=== PATIENT | female | born 1950 | race Caucasian/White ===

== ENCOUNTER 2016-07-22 10:38 | Observation (INO) | payer MEDICARE, OTHER ==
--- NOTE | 2016-07-22 11:38 | RAD ---
INDICATION: Palpitations COMPARISON: August 30, 2010 TECHNIQUE: An AP portable view obtained at 1112 hours is submitted. FINDINGS: Bones/Soft Tissues: There are no acute bony findings. Cardiomediastinal: The cardiomediastinal silhouette is unchanged. There is presumed prominent right pericardial fat pad. Lungs: There are no infiltrates. Pleura: There are no pleural effusions. Other: None IMPRESSION: NO ACTIVE DISEASE OR INTERVAL CHANGE.
[2016-07-22 11:41] LABS: Hematocrit 46 % (35-47); Hemoglobin 15.3 g/dl (12.0-16.0); Mean Corpuscular HGB Conc 34 g/dl (31-36); Mean Corpuscular Hemoglobin 30 pg (27-31); Mean Corpuscular Volume 88 fL (80-97); Mean Platelet Volume 8 um3 (7.4-10.4); Red Blood Count 5.16 10^6/ul (4.0-5.4); Red Cell Distribution Width 13 % (10.5-15); White Blood Count 6.7 10^3/ul (3.5-10.8)
[2016-07-22 12:01] LABS: ALT 16 U/L (7-52); Albumin 4.4 g/dL (3.2-5.2); Alkaline Phosphatase 75 U/L (34-104); BUN/Creatinine Ratio 16.4 (8-20); Blood Urea Nitrogen 12 mg/dL (6-24); CO2 Carbon Dioxide 29 mmol/L (22-32); Calcium 9.7 mg/dL (8.6-10.3); Chloride 103 mmol/L (101-111); Creatine Kinase 97 U/L (10-223); EGFR African American 102.3 (>60); EGFR Non-African American 79.5 (>60); Glucose 107 mg/dL (70-100); Sodium 138 mmol/L (133-145); Total Protein 7.4 g/dL (6.4-8.9)
[2016-07-22 12:03] LABS: Troponin I 0.03 ng/mL (<0.04)
[2016-07-22 12:57] LABS: T4 7.29 g/dL (6.09-12.23); TSH (Thyroid Stimulating Horm) 0.57 mcIU/mL (0.34-5.60)
[2016-07-22] MEDS ORDERED: Acetaminophen TAB* 325 MG PO PRN (15:22)
[2016-07-22] MEDS ORDERED: Ondansetron INJ* 2 MG/ML VIAL IV PRN (15:22)
[2016-07-22] MEDS ORDERED: Aspirin Low Dose CHEW TAB* 81 MG PO ONE (15:28)
[2016-07-22] MEDS ORDERED: Iohexol 350* (CONTRAST) 500 ML MDV IV ONE (15:39)
[2016-07-22 15:40] LABS: Urine Bacteria Absent (Absent); Urine Bilirubin Negative (Negative); Urine Glucose Negative (Negative); Urine Nitrite Negative (Negative)
--- NOTE | 2016-07-22 16:10 | RAD ---
Indication: Palpitations. Contrast: Administered 69.8 ml of OMNIPAQUE 350 mgi/ml CTA of the chest was performed after IV contrast administration. Coronal and sagittal reconstructed images were obtained. Pulmonary arterial tree is well opacified. There are no filling defects present to suggest pulmonary embolus. There is no mediastinal or hilar adenopathy noted. The heart demonstrates no pericardial effusion. The trachea and major bronchi appear patent. Lung leach demonstrate no evidence of alveolar consolidation. IMPRESSION: No evidence of pulmonary emboli is noted. Lung leach are otherwise clear.
--- NOTE | 2016-07-22 19:17 | HP ---
HISTORY AND PHYSICAL: DATE OF ADMISSION: 07/22/16 PRIMARY CARE PROVIDER: Dr. Giordano. ATTENDING PHYSICIAN WHILE IN THE HOSPITAL: Dr. Keyonna Olivera * (report dictated by Abdi Canas NP). CHIEF COMPLAINT: 1. Palpitations. 2. Almost passed out. HISTORY OF PRESENT ILLNESS: Ms. Garcia is a 65-year-old female patient who has a history of hyperlipidemia and sarcoidosis. She comes in today stating that she had an episode actually at the [facility] while she was taking her there and she felt like she was going to faint. She actually initially when she came in to the clinic was having palpitations out in the car and driving to the clinic and then they got worse while she was sitting waiting for her . She became lightheaded, diaphoretic. She felt like she was going to faint. She told the provider there that she felt this way, they put her up on the exam table. They tried but unfortunately were unable to get an EKG. I did touch base with the provider who said that she auscultated her heart sounds and tachycardic. The patient was then directed to the ER via 911. The patient said that she has had episodes of palpitations in the past, but today was much more intense and it lasted longer than when it normally did. She states that she had no chest pressure or heaviness. She also does admit to having a recent travel. She drove up from [place] and two 12-hour drives and that was a few weeks ago. There was obvious concern on the palpitations. She came in to the ER. Repeat troponin was elevated at 0.06 and the hospitalist service was asked to evaluate for admission. PAST MEDICAL HISTORY: Significant for: 1. Hyperlipidemia. 2. Sarcoidosis. PAST SURGICAL HISTORY: She has had: 1. Breast biopsy. 2. Hysterectomy. MEDICATIONS: Home meds are denied. ALLERGIES TO MEDICATIONS: Include LEVAQUIN, MORPHINE, and OXYCODONE. FAMILY HISTORY: Mother had a history of CVA. Father had a history of heart disease. SOCIAL HISTORY: She does not smoke. She occasionally drinks alcohol. Surrogate decision maker is her . REVIEW OF SYSTEMS: There is no documented fever. She denied having any significant weight change. There was no double vision. There is no ear discharge. She denies having any rhinorrhea. No sore throat. No thyroid enlargement. She denies having any chest pain. There is no orthopnea, no nocturnal dyspnea. There is no abdominal pain. No nausea, no vomiting. No dysuria, no frequency. No seizure, no loss of consciousness. No pruritus and no skin ulcerations. Review of 14 systems completed, all others negative. PHYSICAL EXAMINATION GENERAL: At this time, Ms. Garcia is a 65-year-old female patient. She appears well-nourished, well-developed. She does not appear to be in any acute distress. VITAL SIGNS: Reveal blood pressure 156/68, pulse 62, respirations 15, O2 sat 94 %, and temperature 97.1. HEENT: Head: Atraumatic and normocephalic. Eyes: EOMs are intact. Sclerae are anicteric and not pale. Throat: Oral mucosa appears to be moist. No oropharyngeal erythema. NECK: Supple. LUNGS: Clear to auscultation. No wheezes, rales, or rhonchi. HEART: Sounds S1, S2. Regular rate and rhythm. No murmurs, rubs, or gallops. ABDOMEN: Soft, flat, and nontender. Bowel sounds present. EXTREMITIES: Pulses were 2+ throughout. She is able to move all 4 extremities with 5/5 strength. NEUROLOGIC: The patient is awake, alert, and oriented x3. No gross focal deficits. SKIN: Grossly intact. DIAGNOSTIC STUDIES/LAB DATA: Reveal WBC of 6.7, RBC of 5.16, hemoglobin 15.3, hematocrit of 46, platelet count of 267. Sodium was 138, potassium 4.1, chloride 103, bicarb 29, BUN 12, creatinine of 0.73, glucose 107, lactate 1.6, calcium 9.7, mag pending. Total bili 1.1, AST 19, ALT 16, alk phos 75. CK 97, CK-MB . Troponin 0.03, repeat 0.06. BNP of 33. Albumin of 4.4. TSH of 0.57. She had a chest x-ray which revealed no active disease. EKG shows a normal sinus rhythm with a rate of 65 with a PVC. No ST elevations or T-wave inversions. No previous for comparison. Old medical records were reviewed. ASSESSMENT AND PLAN: Ms. Garcia is a 65-year-old female patient coming in to the ER today with complaints of an episode of palpitations and normal fainting. On evaluation in the ED, repeat troponin was now 0.06. We were asked to evaluate for admission. She will be admitted under observation status for: 1. Palpitations and near syncope: At this point, the plan would be to go ahead and place her on telemetry and cycle her troponins, get an echo. I am also going to check a CTA to rule out pulmonary embolism as she did have recent travel. I question if she had supraventricular tachycardia or went into atrial fibrillation and I think the elevated troponin is probably from demand ischemia related to the tachycardia. Again, not knowing what type of tachycardia this is. She may need long-term event monitoring, but that could be set up with her primary. 2. Hyperlipidemia: Continue with current medical regimen. She is on no medications. 3. History of sarcoid: Follow with her primary. 4. DVT prophylaxis: She will be placed on heparin subcu. 5. Fluids, electrolytes, and nutrition: Heart healthy diet. 6. Code status: Full code. TIME SPENT: On the admission was 60 minutes; greater than half the time was spent [id number] with the patient obtaining my history and physical, other half the time spent going over the plan of care with the patient and implementing plan of care. I did discuss the plan of care with my attending, Dr. Olivera; she is in agreement. ABDI CANAS NP CC: Dr. Giordano* [id number]/[facility] #: [id number] MICHELLE
[2016-07-22] MEDS: Heparin VIAL(*) 5000 UNITS/ML VIAL (FIVE THOUSAND) SUBCUT SCH (21:26)
[2016-07-23] MEDS: Heparin VIAL(*) 5000 UNITS/ML VIAL (FIVE THOUSAND) SUBCUT SCH (05:04)
[2016-07-23 05:58] LABS: Hematocrit 41 % (35-47); Hemoglobin 13.8 g/dl (12.0-16.0); Mean Corpuscular HGB Conc 34 g/dl (31-36); Mean Corpuscular Hemoglobin 30 pg (27-31); Mean Corpuscular Volume 88 fL (80-97); Mean Platelet Volume 8 um3 (7.4-10.4); Red Blood Count 4.62 10^6/ul (4.0-5.4); Red Cell Distribution Width 13 % (10.5-15); White Blood Count 6.5 10^3/ul (3.5-10.8)
[2016-07-23 06:39] LABS: BUN/Creatinine Ratio 20.8 (8-20); Calcium 9.4 mg/dL (8.6-10.3); EGFR African American 103.9 (>60); EGFR Non-African American 80.8 (>60); Potassium 4.1 mmol/L (3.5-5.0)
[2016-07-23 07:38] VITALS: BP 109/69
[2016-07-23 08:56] LABS: Troponin I 0.03 ng/mL (<0.04)
[2016-07-23] MEDS ORDERED: Aspirin Low Dose CHEW TAB* 81 MG PO SCH (09:00)
--- NOTE | 2016-07-24 01:27 | DS ---
DISCHARGE SUMMARY: DATE OF ADMISSION: 07/22/16 DATE OF DISCHARGE: 07/23/16 PRIMARY CARE PROVIDER: Stuart Giordano MD DISCHARGING PROVIDER: ROMMEL Stroud SUPERVISING PHYSICIAN: Jose Elias Bertrand MD * (DICTATED BY ROMMEL STROUD) PRIMARY DISCHARGE DIAGNOSIS: Palpitations with elevated troponin. SECONDARY DISCHARGE DIAGNOSES: 1. Hyperlipidemia. 2. Sarcoidosis. DISCHARGE MEDICATION: Aspirin 81 mg p.o. daily. HOSPITAL IMAGIN. Chest x-ray shows no acute process. 2. CTA shows no PE. Lung leach are otherwise clear. 3. Telemetry monitoring overnight shows sinus rhythm, frequently bradycardic with rates in the 50s and occasional PVCs. 4. EKG shows sinus arrhythmia with PVC. Repeat EKG shows sinus bradycardia without ischemic changes. HOSPITAL COURSE: This is a 65-year-old female with history of hyperlipidemia and sarcoidosis, who presented to the emergency department after an episode of palpitations that actually occurred while visiting her 's medical provider. The patient felt very lightheaded and diaphoretic and was subsequently referred to the emergency department. No EKG was performed. The patient was asymptomatic when she reached the emergency department. EKG showed sinus arrhythmia with the rates near 60 and no other acute pathology was recognized. The patient had recently driven back from [place]. There is concern as to whether her symptoms may represent PE. A CTA was performed, which was negative for PE and her lung leach were otherwise clear. Initial labs were unremarkable including a normal CBC and comprehensive metabolic panel. Initial troponin was negative at 0.03, but repeat was slightly elevated at 0.06. Serial monitoring overnight revealed stability in her troponin of 0.06 and the patient had no further symptoms of palpitations. The patient was maintained on continuous telemetry monitoring overnight, which revealed sinus bradycardia with occasional PVCs. No other dysrhythmia is appreciated. The patient was otherwise asymptomatic. The patient has no personal history of cardiovascular disease, but does have a strong family history including her siblings with prior MIs and requiring pacemakers. The patient does require further workup for these symptoms, but unfortunately these services are not available in the hospital over the weekend and the patient is otherwise stable for discharge. The patient reports that she has been under significant amount of stress and has been traveling recently. She believes that this maybe contributing to her symptoms, which I explained to her is certainly possible, but further workup is absolutely necessary, which she agrees with. DISPOSITION: The patient is being discharged to home with instructions to follow up with her primary care provider next week. She started on a daily aspirin. She requires an echocardiogram, stress test, and Holter monitor. The patient is advised to limit caffeine intake and maintain appropriate hydration status. ROMMEL STROUD CC: Dr. Giordano* [id number]/[facility] #: [id number] MTDBaltazar
== END 2016-07-23 09:30 | disposition home or self-care (01) ==
LOC: ED 10:38 → MEDTELE 15:51
PROVIDERS: ADMIT Internal Medicine; ATTEND Hospitalist
DX: R00.2 Palpitations (principal); R74.8 Abnormal levels of other serum enzymes; R55 Syncope and collapse; E78.5 Hyperlipidemia, unspecified; D86.9 Sarcoidosis, unspecified; I49.3 Ventricular premature depolarization; Z88.1 Allergy status to other antibiotic agents; Z88.5 Allergy status to narcotic agent; Z79.82 Long term (current) use of aspirin; Z82.49 Family history of ischemic heart disease and other diseases of the circulatory system
CPT/HCPCS: 36415; 71010; 71275; 80048; 80053; 80061; 81003; 81015; 82550; 82553; 83036; 83605; 83880; 84436; 84443; 84484; 85025; 85610; 87086; 93005; 96372; 99283; A9270-GY; G0378; J1644; Q9967

== ENCOUNTER 2018-09-08 14:10 | Emergency (ER) | payer MEDICARE, OTHER ==
[2018-09-08 17:49] LABS: ABS Eosinophils 0.1 10^3/ul (0-0.6); ABS Monocytes 0.6 10^3/ul (0-0.8); ABS Neutrophils 5.9 10^3/ul (1.5-7.7); Eosinophil % 1.1 %; Hematocrit 39 % (35-47); Hemoglobin 13.4 g/dL (12.0-16.0); Lymphocyte % 23.3 %; Mean Corpuscular HGB Conc 34 g/dL (31-36); Mean Corpuscular Hemoglobin 31 pg (27-31); Mean Corpuscular Volume 91 fL (80-97); Mean Platelet Volume 7.8 fL (7.4-10.4); Platelet Count 254 10^3/uL (150-450); Red Blood Count 4.33 10^6 /uL (3.70-4.87); Red Cell Distribution Width 13 % (10.5-15); White Blood Count 8.7 10^3/uL (3.5-10.8)
--- NOTE | 2018-09-08 17:50 | ED ---
HPI Cardiac - HPI Summary HPI Summary: This patient is a 67 year old F presenting to ED with a chief complaint of heart palpitations since 1100 this morning. She had similar heart issues a couple years ago due to stress. They ruled out [facility] then. She denies feeling stressed today. She used essential oils earlier today to lower her blood pressure but denies taking deep breaths. The patient rates the pain 3/10 in severity. Symptoms aggravated by nothing. Symptoms alleviated by nothing. Patient reports slight [place], lightheadedness, and disturbed sleep. Patient denies CP, SOB, numbness, tingling, nausea, vomiting, LOC. She has previously had mild arm and shoulder pain but no pain today. PMHx of HLD and sarcoidosis but not of DM, DVT, PE, thyroid, urinary issues. FHx of cardiac disease, stroke, aneurysm, and cancer. Patient occasionally drinks alcohol, does not use substances, and is a former smoker. - History of Current Complaint Chief Complaint: EDDysrhythmPalp Stated Complaint: HIGH HEART RATE FOR ABOUT 3 HOURS PER PT Time Seen by Provider: 09/08/18 17:07 Hx Obtained From: Patient Onset/Duration: Started Hours Ago - 1100 this morning, Still Present Timing: Constant Initial Severity: Mild Current Severity: Mild Pain Intensity: 3 Pain Scale Used: 0-10 Numeric Chest Pain Radiates: No Aggravating Factor(s): Nothing Alleviating Factor(s): Nothing Associated Signs and Symptoms: Positive: Headaches, Lightheadedness, Other: - Disturbed sleep. Negative: Chest Pain, Numbness, Tingling, Shortness of Breath , Syncope, Nausea, Vomiting Related History: Similar Episode/Dx as: - Years ago due to stress - Additional Pertinent History Primary Care Physician: [id number] - Allergy/Home Medications Allergies/Adverse Reactions: Allergies Allergy/AdvReac Type Severity Reaction Status Date / Time levofloxacin Allergy Unknown Verified 09/08/18 14:21 Reaction Details morphine Allergy Unknown Verified 09/08/18 14:21 Reaction Details oxycodone Allergy Dizziness Verified 09/08/18 14:21 Home Medications: Home Medications Mirtazapine TAB* [Remeron TAB*] 15 mg PO BEDTIME 09/08/18 [History Confirmed ] PMH/Surg Hx/FS Hx/Imm Hx Endocrine/Hematology History: Denies: Hx Diabetes, Hx Thyroid Disease Cardiovascular History: Reports: Hx Hypercholesterolemia Denies: Hx Deep Vein Thrombosis, Hx Embolism History: Reports: Other Problems/Disorders - Denies urinary issues Sensory History: Reports: Hx Contacts or Glasses Denies: Hx Hearing Aid Opthamlomology History: Reports: Hx Contacts or Glasses Infectious Disease History: No Infectious Disease History: Reports: Hx Shingles - apr 2016 Denies: Traveled Outside the [place] in Last 30 Days - Family History Known Family History: Positive: Cardiac Disease, Other - Yes - Stroke, aneurysm , [place] - Social History Alcohol Use: Occasionally Hx Substance Use: No Substance Use Type: Reports: None Hx Tobacco Use: Yes Smoking Status (MU): Former Smoker Have You Smoked in the Last Year: No - "only when I drank" Review of Systems Positive: Palpitations. Negative: Chest Pain Negative: Shortness Of Breath Negative: Vomiting, Nausea Neurological: Negative - Tingling, Other - Lightheadedness, disturbed sleep Positive: Headache. Negative: Numbness, Syncope All Other Systems Reviewed And Are Negative: Yes Physical Exam - Summary Physical Exam Summary: GENERAL: Patient is a well-developed and nourished F who is lying comfortable in the stretcher. Patient is not in any acute respiratory distress. HEAD AND FACE: Normocephalic EYES: PERRLA, EOMI x 2. EARS: Hearing grossly intact. MOUTH: Oropharynx within normal limits. NECK: Supple, trachea is midline, no adenopathy, no JVD, no carotid bruit. CHEST: Symmetric, no tenderness at palpation LUNGS: Clear to auscultation bilaterally. No wheezing or crackles. CVS: Regular rate and rhythm, S1 and S2 present, no murmurs or gallops appreciated. ABDOMEN: Soft, non-tender. Bowel sounds are normal. No abnormal abdominal pulsations. EXTREMITIES: Full ROM in all major joints, no edema, no cyanosis or clubbing. NEURO: Alert and oriented x 3. No acute neurological deficits. Speech is normal and follows commands. SKIN: Dry and warm Triage Information Reviewed: Yes Vital Signs On Initial Exam: Initial Vitals Temp Pulse Resp BP Pulse Ox 97.6 F 160 16 151/107 96 09/08/18 14:15 09/08/18 14:15 09/08/18 14:15 09/08/18 14:15 09/08/18 14:15 Vital Signs Reviewed: Yes Diagnostics - Vital Signs Vital Signs Temp Pulse Resp BP Pulse Ox 09/08/18 17:00 59 18 95 09/08/18 16:29 60 96 09/08/18 16:10 98 F 63 16 132/68 98 09/08/18 14:15 97.6 F 160 16 151/107 96 - Laboratory Result Diagrams: 09/08/18 17:39 09/08/18 17:39 Lab Statement: Any lab studies that have been ordered have been reviewed, and results considered in the medical decision making process. - Radiology CXR Radiology Interpretation Completed By: Radiologist Summary of Radiographic Findings: No evidence for acute intrathoracic disease. Dr. Avelar has reviewed this radiology report. - EKG 1421 Cardiac Rate: NL - 74 BPM Summary of EKG Findings: Sinus arrhythmia at 74 BPM, normal axis. 2114 Cardiac Rate: Bradycardia - 58 BPM EKG Rhythm: Sinus Bradycardia Summary of EKG Findings: Sinus bradycardia at 58 BPM, normal axis, no ischemic changes. Re-Evaluation - Re-Evaluation First Eval Re-Evaluation Time: 19:05 Comment: Upon review of patient history, I noticed she did not have cardiology workup done here. Therefore, I followed-up with her and she stated she got cardiology workup done at [facility] where the stress tests and echo were all normal. Second Eval Re-Evaluation Time: 21:41 Comment: Following second troponin, discussed results with patient. Third Eval Re-Evaluation Time: 20:27 Comment: Discussed results with patient. Patient will be discharged home with diagnosis of heart palpitations and instructions to follow-up with a door installer. Disposition - Course Course Of Treatment: This patient is a 67 year old F presenting to ED with a chief complaint of heart palpitations since 1100 this morning. In the ER, bloodwork and UA were obtained. CXR revealed no evidence for acute intrathoracic disease. EKG revealed sinus arrhythmia at 74 BPM, normal axis. Case discussed with hospitalist who recommended the patient be discharged home with follow-up with door installer for loop recorder. Her troponin is mostly from demand ischemia, so I feel comfortable discharging her home with follow-up to cardiology. I discussed results with patient, and she reports feeling better. She is hemodynamically stable and safe for discharge. Strict return precautions given and she will otherwise follow up with her cardiology. - Diagnoses Provider Diagnoses: Palpitations - Physician Notifications Discussed Care Of Patient With: Leah Daugherty Time Discussed With Above Provider: 22:00 Instructed by Provider To: Other - Discussed patient case with Dr. Daugherty, hospitalist, who recommends the patient see cardiology. Discharge - Sign-Out/Discharge Documenting (check all that apply): Patient Departure - Discharge Patient Received Moderate/Deep Sedation with Procedure: No - Discharge Plan Condition: Good Disposition: HOME Patient Education Materials: Heart Palpitations (ED) Referrals: Jenna Ward MD [Medical Doctor] - 3 Days Additional Instructions: Follow up with Dr. Ward, door installer, in 1-3 days. RETURN TO THE EMERGENCY DEPARTMENT FOR CHANGING OR WORSENING SYMPTOMS. - Billing Disposition and Condition Condition: GOOD Disposition: Home - Attestation Statements Document Initiated by Barbaraibe: Yes Documenting Scribe: Winston Anna Provider For Whom Lise is Documenting (Include Credential): Demetria Avelar MD Scribe Attestation: IWinston, scribed for Demetria Avelar MD on 09/08/18 at 2230. Scribe Documentation Reviewed: Yes Provider Attestation: The documentation as recorded by the scribeWinston accurately reflects the service I personally performed and the decisions made by me, Demetria Avelar MD Status of Scribe Document: Viewed
[2018-09-08 17:58] LABS: Activated Partial Thrombo Time 27.9 seconds (26.0-36.3); INR 0.93 (0.82-1.09)
[2018-09-08 18:07] LABS: ALT 12 U/L (7-52); AST 18 U/L (13-39); Albumin 4.2 g/dL (3.2-5.2); Albumin/Globulin Ratio 1.6 (1-3); Alkaline Phosphatase 71 U/L (34-104); Anion Gap 6 mmol/L (2-11); BUN/Creatinine Ratio 21.4 (8-20); Blood Urea Nitrogen 15 mg/dL (6-24); CO2 Carbon Dioxide 28 mmol/L (22-32); Calcium 9.2 mg/dL (8.6-10.3); Chloride 106 mmol/L (101-111); EGFR African American 100.4 (>60); Globulin 2.6 g/dL (2-4); Glucose 99 mg/dL (70-100); Magnesium 2.1 mg/dL (1.9-2.7); Potassium 4.2 mmol/L (3.5-5.0); Sodium 140 mmol/L (135-145); Total Protein 6.8 g/dL (6.4-8.9)
[2018-09-08 18:14] LABS: Troponin I 0.05 ng/mL (<0.04)
[2018-09-08 18:36] LABS: TSH (Thyroid Stimulating Horm) 1.23 mcIU/mL (0.34-5.60)
[2018-09-08 21:17] LABS: Urine Appearance Cloudy; Urine Bacteria Absent (Absent); Urine Bilirubin Negative (Negative); Urine Blood Negative (Negative); Urine Color Yellow; Urine Glucose Negative (Negative); Urine Ketones Negative (Negative); Urine Nitrite Negative (Negative); Urine Protein Negative (Negative); Urine Red Blood Cell Trace(0-2/hpf) (Absent); Urine Specific Gravity 1.015 (1.010-1.030); Urine Squamous Epithelial Cell Present (Absent); Urine Urobilinogen Negative (Negative); Urine White Blood Cell 1+(6-10/hpf) (Absent)
[2018-09-08 21:38] LABS: Troponin I 0.06 ng/mL (<0.04)
[2018-09-08 22:44] VITALS: BP 120/79
== END 2018-09-08 22:35 | disposition home or self-care (01) ==
LOC: ED 14:10
DX: R00.2 Palpitations (principal); E78.00 Pure hypercholesterolemia, unspecified; Z88.5 Allergy status to narcotic agent; Z88.3 Allergy status to other anti-infective agents; Z87.891 Personal history of nicotine dependence
CPT/HCPCS: 36415; 71045; 80053; 81003; 81015; 83605; 83735; 83880; 84443; 84484; 85025; 85379; 85610; 85730; 87040; 87086; 93005; 99283

== ENCOUNTER 2019-05-17 19:05 | Inpatient (IN) | payer MEDICARE, OTHER ==
--- OUTSIDE RECORDS SUMMARY | 2019-05-17 19:13 | XMS REPORT | Continuity of Care Document ---
:1950 External Reference #:[id number] Author Name Elisa Luna MD (transmitted by agent of provider Jocelyn Arias) Address [address], [address] [place] [id number] Care Team Providers Name Role Phone Stuart Giordano MD - Family Care Team Information Bead Wrapper [phone] Medicine Problems Active Problems Provider Date Palpitations [facility] [place] Onset: 07/29/2016 Dyspnea Rik Kellogg M.D., [facility] Onset: 07/29/2016 Hyperlipidemia Rik Kellogg M.D., [facility], [place] Onset: 10/09/2018 Paroxysmal atrial fibrillation Rik Kellogg M.D., [facility], [facility] Onset: Social History Type Date Description Comments Sex Unknown ETOH Use Occasionally consumes alcohol Tobacco Use Start: Unknown End: Patient is a former socially and Unknown smoker exposed to second hand smoke Recreational Drug Use Denies Drug Use Smoking Status Reviewed: 03/29/19 Patient is a former socially and smoker exposed to second hand smoke Exercise Type/Frequency Does not exercise Allergies, Adverse Reactions, Alerts Active Allergies Reaction Severity Comments Date Morphine itchey 07/29/2016 Levaquin 07/29/2016 Oxycodone 07/29/2016 Medications Active Medications SIG Qnty Indications Ordering Date Provider Toprol XL 1 by mouth every 90tabs Rik Smith 11/14/2018 25mg Tablets day Toñito Kellogg, ER 24HR GINO, ELODIA Xarelto 1 by mouth every 90tabs Rik Smith 11/14/2018 20mg Tablets day Toñito Kellogg, [facility], [place] Vitamin C 1 by mouth every Unknown 1000mg day prn Capsules D3 1 po daily Unknown Capsules Calcium Plus 1 po daily Unknown Magnesium Calcium occasional Unknown Digize Oil 1 -2 gtts prn for Unknown indigestion Deep Relief prn pain Unknown Roll-On Essentialzyme 2 po daily Unknown Tablet Ninja Red 2 ounces daily if Unknown Liquid remembers. CBD Oil 1000 MG 1/4 dropper Unknown ( started 11/03/18) Super B-Complex 1 tablet po daily Unknown Tablets Multiple Vitamins Master formula 1 Unknown packet daily prn Red Yeast Rice 1200 mg 1 cap po Unknown daily PD 1 po daily for Unknown endocrine system Medications Administered in Office Medication SIG Qnty Indications Ordering Provider Date Inj, Regadenoson, 0.1 MG Rik Kellogg M.D., 11/19/2018 Injection FACC, FASNC Technetium TC 99M Rik Kellogg M.D., 11/19/2018 Tetrofosmin, Per Unit Dose FACC, FASNC Up To 40 Millicuries Injection Technetium TC 99M Rik Kellogg M.D., 11/19/2018 Tetrofosmin, Per Unit Dose FACC, FASNC Up To 40 Millicuries Injection Technetium TC 99M Rik Kellogg M.D., 08/29/2016 Tetrofosmin, Per Unit Dose FACC, FASNC Up To 40 Millicuries Injection Immunizations Description No Information Available Vital Signs Date Vital Result Comment 03/29/2019 10:25am Height 64.25 inches 5'4.25" Weight 178.00 lb Heart Rate 57 /min BP Systolic Sitting 160 mmHg BP Diastolic Sitting 80 mmHg O2 % BldC Oximetry 93 % BMI (Body Mass Index) 30.3 kg/m2 12/31/2018 9:31am Height 64.25 inches 5'4.25" Weight 181.00 lb Heart Rate 55 /min BP Systolic Sitting 142 mmHg BP Diastolic Sitting 80 mmHg O2 % BldC Oximetry 96 % BMI (Body Mass Index) 30.8 kg/m2 Results Test Acquired Date Facility Test Result H/L Range Note Laboratory test 11/19/2018 [facility] TSH 1.18 Normal 0.34- 5.[address] (Thyroid mcIU/[place] [address] Stim [phone] Horm) Procedures Date Code Description Status 01/24/2019 83109 Diffusing Capacity Completed 01/24/2019 72562 Plethysmography Determination Lung Volumes & Per Airway Completed Resist 01/24/2019 50490 Pulmonary Function><Bronchodil Completed 01/05/2019 99024 Sleep Study Unattended,HRT Rate,Oxygen Sat,Resp Completed Effort/Airflow 12/11/2018 48586 EKG Tracing & Interpretation Completed 11/19/2018 87339 Stress Test Completed 11/19/2018 74909 Myocardial Perfusion Imaging Tomographic (Spect) Multiple Completed Studies 10/23/2018 27088 ECHO Transthoracic, Real-Time 2D With Doppler And Color Completed Flow 10/23/2018 37575 ECHO Transthoracic, Real-Time 2D With Doppler And Color Completed Flow 10/09/2018 25557 EKG Tracing & Interpretation Completed Medical Devices Description No Information Available Encounters Type Date Location Provider Dx Diagnosis Office Visit 12/31/2018 Pulmonology And Elisa Luna, D86.9 Sarcoidosis, 10:00a [facility] unspecified Melony R06.83 Snoring Office Visit 12/11/2018 1:00p [facility] Riklandry Smith I48.0 Paroxysmal atrial Of Melony Kellogg M.D., fibrillation [facility] Office Visit 10/09/2018 1:00p [facility] Rik Smith R00.2 Palpitations Of Melony Kellogg M.D., [facility] R06.02 Shortness of breath Assessments Date Code Description Provider 03/29/2019 D86.9 Sarcoidosis, unspecified Elisa Luna MD 03/29/2019 G47.33 Obstructive sleep apnea (adult) Elisa Luna MD (pediatric) 01/24/2019 D86.9 Sarcoidosis, unspecified Elisa Luna MD 01/05/2019 G47.33 Obstructive sleep apnea (adult) Elisa Luna MD (pediatric) 12/31/2018 D86.9 Sarcoidosis, unspecified Elisa Luna MD 12/31/2018 R06.83 Snoring Elisa Luna MD 12/11/2018 I48.0 Paroxysmal atrial fibrillation Rik Kellogg M.D., [facility] , [facility] 11/19/2018 R06.00 Dyspnea, unspecified Rik Kellogg M.D., [facility], [facility] 10/23/2018 R06.02 Shortness of breath Rik Kellogg M.D., [facility], [facility] 10/23/2018 R06.02 Shortness of breath Traveling ECHO 1 10/09/2018 R00.2 Palpitations Rik Kellogg M.D., [facility], [facility] 10/09/2018 R06.02 Shortness of breath Rik Kellogg M.D., [facility], [facility] Plan of Treatment Future Appointment(s):03/30/2020 10:30 am - Kenia Goss NP at [facility]03/29/2019 - Elisa Luna, MDD86.9 Sarcoidosis, unspecifiedFollow up:1 yearG47.33 Obstructive sleep apnea (adult) ( pediatric) Functional Status Description No Information Available Mental Status Description No Information Available Referrals Description No Information Available
[2019-05-17 19:43] LABS: ABS Eosinophils 0.1 10^3/ul (0-0.6); ABS Lymphocytes 1.6 10^3/ul (1.0-4.8); ABS Monocytes 0.6 10^3/ul (0-0.8); ABS Neutrophils 5.7 10^3/ul (1.5-7.7); Eosinophil % 0.6 %; Hematocrit 42 % (35-47); Hemoglobin 14.5 g/dL (12.0-16.0); Lymphocyte % 19.8 %; Mean Corpuscular HGB Conc 34 g/dL (31-36); Mean Corpuscular Hemoglobin 31 pg (27-31); Mean Corpuscular Volume 91 fL (80-97); Mean Platelet Volume 7.2 fL (7.4-10.4); Platelet Count 247 10^3/uL (150-450); Red Blood Count 4.65 10^6 /uL (3.70-4.87); Red Cell Distribution Width 13 % (10-15)
[2019-05-17 19:50] LABS: INR 1.76 (0.82-1.09)
--- NOTE | 2019-05-17 19:50 | ED ---
HPI Cardiac - HPI Summary HPI Summary: The pt is a 68 yr old [facility]o rapid heart rate beginning 2 hours [facility]. She notes that her heart suddenly began racing but she notes she was doing nothing when the symptom began. She has experienced this once before in 08/2018. She rates her current pain severity a 0/10. No aggravating or alleviating factors noted. She also denies any cp, cough, fever, nausea, or SOB. - History of Current Complaint Chief Complaint: EDDysrhythmPalp Stated Complaint: RAPID HEART RATE PER EMS Time Seen by Provider: 05/17/19 19:30 Hx Obtained From: Patient Onset/Duration: Started Hours Ago, Still Present Timing: Constant, Lasting Hours Initial Severity: Mild Current Severity: None Pain Intensity: 0 Pain Scale Used: 0-10 Numeric Aggravating Factor(s): Nothing Alleviating Factor(s): Nothing Associated Signs and Symptoms: Negative: Chest Pain, Shortness of Breath, Fever , Nausea, Cough - Additional Pertinent History Primary Care Physician: BERTIN - Allergy/Home Medications Allergies/Adverse Reactions: Allergies Allergy/AdvReac Type Severity Reaction Status Date / Time levofloxacin Allergy Unknown Verified 05/17/19 19:24 Reaction Details morphine Allergy Unknown Verified 05/17/19 19:24 Reaction Details oxycodone Allergy Dizziness Verified 05/17/19 19:24 Home Medications: Home Medications Metoprolol Succinate XL TAB* [Toprol XL TAB*] 25 mg PO DAILY 05/17/19 [History Confirmed 05/17/19] Rivaroxaban TAB(*) [Xarelto 20 mg] 20 mg PO DAILY 05/17/19 [History Confirmed ] PMH/Surg Hx/FS Hx/Imm Hx Endocrine/Hematology History: Denies: Hx Diabetes, Hx Thyroid Disease Cardiovascular History: Reports: Hx Hypercholesterolemia Denies: Hx Deep Vein Thrombosis, Hx Embolism History: Reports: Other Problems/Disorders - Denies urinary issues Sensory History: Reports: Hx Contacts or Glasses Denies: Hx Hearing Aid Opthamlomology History: Reports: Hx Contacts or Glasses - Surgical History Surgical History: Yes Surgery Procedure, Year, and Place: hysterectomy Infectious Disease History: No Infectious Disease History: Reports: Hx Shingles - apr 2016 Denies: Traveled Outside the [place] in Last 30 Days - Family History Known Family History: Positive: Cardiac Disease, Other - Yes - Stroke, aneurysm , [place] - Social History Alcohol Use: Rare Hx Substance Use: No Substance Use Type: Reports: None Hx Tobacco Use: Yes Smoking Status (MU): Former Smoker Have You Smoked in the Last Year: No - "only when I drank" Review of Systems Negative: Fever Negative: Chest Pain Negative: Shortness Of Breath, Cough Negative: Nausea All Other Systems Reviewed And Are Negative: Yes Physical Exam - Summary Physical Exam Summary: General: Well-developed, Well-nourished female. No acute distress. HEENT: Normocephalic, Atraumatic. Eyes: Conjuctiva normal, PERRL. Oropharynx: Clear, mucous membranes moist, (-) exudates. Neck: Soft, FROM, (-) lymphadenopathy, (-) thyromegaly, (-) JVD. Cardiovascular: NSR, (-) murmur. Lungs: Clear to auscultation bilaterally (-) wheezes, (-) rales, (-) rhonchi. Abdomen: Soft, non-tender, non-distended, (-) organomegaly, normal bowel sounds. Back: (-) CVA tenderness Extremities: No edema. Skin: Warm, dry, (-) rash. Neuro: Alert and oriented x3, moves all extremities equally. No ataxia. No gait disturbance. No sensory deficit. No amnesia. Psychiatric: Mood normal, affect normal. Triage Information Reviewed: Yes Vital Signs On Initial Exam: Initial Vitals Temp Pulse Resp BP Pulse Ox 97.3 F 142 16 120/84 95 05/17/19 19:10 05/17/19 19:10 05/17/19 19:10 05/17/19 19:10 05/17/19 19:10 Vital Signs Reviewed: Yes Procedures - Sedation Patient Received Moderate/Deep Sedation with Procedure: No Diagnostics - Vital Signs Vital Signs Temp Pulse Resp BP Pulse Ox 05/17/19 19:22 133 16 117/95 95 05/17/19 19:10 97.3 F 142 16 120/84 95 - Laboratory Lab Results: Lab Results 05/17/19 Range/Units 19:37 WBC 8.0 (3.5-10.8) 10^3/uL RBC 4.65 (3.70-4.87) 10^6 /uL Hgb 14.5 (12.0-16.0) g/dL Hct 42 (35-47) % MCV 91 (80-97) fL MCH 31 (27-31) pg MCHC 34 (31-36) g/dL RDW 13 (10-15) % Plt Count 247 (150-450) 10^3/uL MPV 7.2 L (7.4-10.4) fL Neut % (Auto) 71.8 % Lymph % (Auto) 19.8 % [place] % (Auto) 7.3 % Eos % (Auto) 0.6 % Baso % (Auto) 0.5 % Absolute Neuts (auto) 5.7 (1.5-7.7) 10^3/ul Absolute Lymphs (auto) 1.6 (1.0-4.8) 10^3/ul Absolute Monos (auto) 0.6 (0-0.8) 10^3/ul Absolute Eos (auto) 0.1 (0-0.6) 10^3/ul Absolute Basos (auto) 0.0 (0-0.2) 10^3/ul Absolute Nucleated RBC 0.0 10^3/ul Nucleated RBC % 0.0 Result Diagrams: 05/18/19 05:32 05/18/19 05:32 Lab Statement: Any lab studies that have been ordered have been reviewed, and results considered in the medical decision making process. - Radiology CXR Radiology Interpretation Completed By: ED Physician Summary of Radiographic Findings: No obvious infiltrate or effusion pending official report. - EKG 1914 Cardiac Rate: Tachycardia - 142 BPM EKG Rhythm: Sinus Tachycardia Summary of EKG Findings: EKG done at 1914 reveals junctional tachycardia @ 142 bpm. No STEMI. 2012 Cardiac Rate: NL - 70 bpm EKG Rhythm: Sinus Rhythm Summary of EKG Findings: EKG @ 2012 reveals NST @ 70 bpm. No STEMI. 2302 Cardiac Rate: Other Rate - Afib @ 140 bpm EKG Rhythm: Atrial Fibrillation Summary of EKG Findings: EKG @ 2302 reveals Afib @ 140 bpm. No STEMI. Re-Evaluation - Re-Evaluation First Eval Re-Evaluation Time: 21:49 Comment: 2nd Troponin is negative. Disposition - Course Course Of Treatment: 68-year-old female presents with sensation of rapid heartbeat. She states she's had this before. Has a history of atrial fibrillation. this happened in August. Patient states lasted over 2 hours at this time. She denies any pain. No significant shortness of breath just feeling like her heart is racing. She was tachycardic in the 140s upon arrival. 2 different times while in the emergency room her heart rate dropped into the 60s and 70s. Then went back up into the 130s 140s. The second time she was definitely in A. fib. Her 3 hour troponin was elevated at 0.03. Patient referred to hospitalist for admission. - Diagnoses Provider Diagnoses: Paroxysmal A-fib, Elevated troponin - Physician Notifications Discussed Care Of Patient With: Marcia Holloway - Dr. Holloway will admit the pt to [facility]. Discharge ED - Sign-Out/Discharge Documenting (check all that apply): Patient Departure - admit - Discharge Plan Condition: Improved Disposition: ADMITTED TO [facility] - Billing Disposition and Condition Condition: IMPROVED Disposition: Admitted to [facility] - Attestation Statements Document Initiated by Claire: Yes Documenting Scribe: Ashwin Garcia Provider For Whom Claire is Documenting (Include Credential): Trudy Crews MD Scribe Attestation: I, Ashwin Garcia, scribed for Trudy Crews MD on 05/19/19 at 0401. Scribe Documentation Reviewed: Yes Provider Attestation: The documentation as recorded by the Ashwin lopez accurately reflects the service I personally performed and the decisions made by me, Trudy Crews MD Status of Scribe Document: Viewed
[2019-05-17] MEDS ORDERED: Labetalol IV* 5 MG/ML 20 ML VIAL IV PUSH ONE (19:55)
[2019-05-17 20:00] LABS: Albumin/Globulin Ratio 1.6 (1-3); BUN/Creatinine Ratio 14.9 (8-20); Calcium 8.8 mg/dL (8.6-10.3); EGFR African American 105.3 (>60); Globulin 2.5 g/dL (2-4); Potassium 3.6 mmol/L (3.5-5.0); Total Bilirubin 0.8 mg/dL (0.2-1.0); Total Protein 6.5 g/dL (6.4-8.9)
[2019-05-17 20:01] LABS: Troponin I 0.02 ng/mL (<0.03)
[2019-05-17 20:42] LABS: TSH (Thyroid Stimulating Horm) 0.92 mcIU/mL (0.34-5.60)
[2019-05-17 23:21] LABS: Troponin I 0.11 ng/mL (<0.03)
[2019-05-18 05:50] LABS: ABS Eosinophils 0.1 10^3/ul (0-0.6); ABS Monocytes 0.7 10^3/ul (0-0.8); ABS Neutrophils 4.2 10^3/ul (1.5-7.7); Eosinophil % 1.2 %; Hematocrit 40 % (35-47); Hemoglobin 13.8 g/dL (12.0-16.0); Mean Corpuscular HGB Conc 35 g/dL (31-36); Mean Corpuscular Hemoglobin 32 pg (27-31); Mean Corpuscular Volume 91 fL (80-97); Mean Platelet Volume 7.5 fL (7.4-10.4); Nucleated Red Blood Cells % 0.3; Platelet Count 251 10^3/uL (150-450); Red Blood Count 4.39 10^6 /uL (3.70-4.87); Red Cell Distribution Width 13 % (10-15)
[2019-05-18 06:03] LABS: BUN/Creatinine Ratio 16.4 (8-20); Calcium 8.8 mg/dL (8.6-10.3); EGFR African American 95.4 (>60); EGFR Non-African American 78.8 (>60); Potassium 3.9 mmol/L (3.5-5.0)
[2019-05-18 06:12] LABS: Troponin I 0.17 ng/mL (<0.03)
--- NOTE | 2019-05-18 06:17 | ADMNOTE ---
Subjective Interval History: 68 yo female with hx of paroxysmal Afib on xarelto presenting with complaints of palpitations. She has labile mood this morning. On the tele, her HR has gone up to as high as 140s but not sustained long enough to be administered medications. troponins are elevated at 0.11. TSH is normal. Family History: Unchanged from Admission Social History: Unchanged from Admission Past Medical History: Unchanged from Admission Review of Systems - Measurements Intake and Output: Intake and Output Last 24 Hours 05/15/19 05/16/19 05/17/19 05/18/19 06:59 06:59 06:59 06:59 Intake Total 0 Output Total 0 Balance 0 Weight 164 lb 6.4 oz Intake: Oral 0 Output: Urine 0 - Review of Systems Constitutional Symptoms: Negative: Weight Gain, Weight Loss, Weakness, Fatigue, Fever, Night Sweats, Unexplained Falls, Other Dermatology: Negative: Normal, Rash, Skin Lesions, Cancer, Skin Lumps, Other HEENT: Negative: Normal, Change in Hearing, Vertigo, Dental Problems, Tinnitus, Sinus Problem, Other Eyes: Negative: Normal, Change in Vision, Double Vision, Eye Pain, Glaucoma, Cataract, Contacts or Glasses, Other Thyroid: Negative: Normal, Goiter, Thyroid Nodule, Cold Intolerance, Heat Intolerance , Sweatiness, Tremor, Frequent Defecation, Constipation, Palpitations, Primary Hypothyroidism, Primary Hyperthyroidism, Weight Loss, Weight Gain, Change in Skin/Hair, Change in Menstruation, Radiation Exposure, Other Pulmonary: Negative: Normal, Cough, Sputum, Hemoptysis, Wheezing, Respiratory Distress, Shortness of Breath, COPD, Asthma, Exercise Intolerance, Home Oxygen, Other Cardiology: Positive: Palpitations Negative: Normal, Chest Pain, Shortness of Breath, Swelling of Ankles, Peripheral Vascular Dis, Edema, Faintness, Syncope, Claudication, Proximal NocturnalDyspnea, Orthopnoea, Other Gastroenterology: Negative: Normal, Abdominal Pain, Nausea, Vomiting, Anorexia, Indigestion, Difficulty Swallowing, Heartburn, Constipation, Diarrhea, Blood in Stools, Change in Bowel Habits, Haematemesis, Melena, Other Genital - Urinary: Negative: Normal, Dysuria, Hematuria, Polyuria, Nocturia, Other Musculoskeletal: Negative: Joint Pain, Joint Stiffness, Arthritis, Osteoporosis, Low Back Pain , Sciatica, Joint Deformities, Kyphoscoliosis, Other Endocrinology: Negative: Normal, Thyroid Problems, Adrenal Problems, Gonadal Problems, Family Hx Endocrine Disorders, Obesity, Diabetes Mellitus, Hyperglycemia, Hx Hypoglycemia, Diabetic Foot Ulcers, Calluses, Hirsutism, Menstrual Abnormalities , Polydipsia, Polyuria, Gonadal Problems, Gynecomastia, Pituitary disease, Other Hematologic/Lymphatic: Negative: Anemia, Easy Bruising, Hx Leukemia, Hx Lymphoma, Use of Anticoagulant, Use of Antiplatelet Drugs, Other Neurology: Negative: Normal, Headache, Migraines, Change in Vision, Diplopia, Dizziness , Change in Balancing, Change in Coordination, Change in Memory, Change in Speech, Change in Sphincter Function, Change in Walking, Numbness\Paresthesiae, Unexplained Weakness, Hx of Stroke\TIA, Hx of Seizures, Other Objective Active Medications: Metoprolol Succinate (Toprol Xl Tab*) 25 mg PO DAILY [facility] Rivaroxaban (Xarelto(*)) 20 mg PO QPM [facility] Vital Signs - 8 hr 05/17/19 05/17/19 05/17/19 22:22 22:52 23:00 Temperature Pulse Rate 63 58 139 Respiratory 23 18 22 Rate Blood Pressure 113/64 122/70 (mmHg) O2 Sat by Pulse 94 96 97 Oximetry 05/17/19 05/17/19 05/17/19 23:01 23:22 23:52 Temperature Pulse Rate 139 65 62 Respiratory 13 19 20 Rate Blood Pressure 122/70 115/63 125/79 (mmHg) O2 Sat by Pulse 96 94 93 Oximetry 05/18/19 05/18/19 05/18/19 00:00 00:18 00:20 Temperature 97.5 F Pulse Rate 58 64 64 Respiratory 19 20 19 Rate Blood Pressure 114/57 114/57 (mmHg) O2 Sat by Pulse 92 94 94 Oximetry 05/18/19 05/18/19 05/18/19 00:22 00:45 00:51 Temperature 97.5 F 98 F Pulse Rate 62 68 61 Respiratory 17 16 16 Rate Blood Pressure 117/75 114/57 131/69 (mmHg) O2 Sat by Pulse 94 95 97 Oximetry 05/18/19 03:30 Temperature 98.1 F Pulse Rate 55 Respiratory 19 Rate Blood Pressure 105/58 (mmHg) O2 Sat by Pulse 97 Oximetry Oxygen Devices in Use Now: None Result Diagrams: 05/18/19 05:32 05/18/19 05:32 Additional Lab and Data: Lab Results 05/17/19 Range/Units 19:37 WBC 8.0 (3.5-10.8) 10^3/uL RBC 4.65 (3.70-4.87) 10^6 /uL Hgb 14.5 (12.0-16.0) g/dL Hct 42 (35-47) % MCV 91 (80-97) fL MCH 31 (27-31) pg MCHC 34 (31-36) g/dL RDW 13 (10-15) % Plt Count 247 (150-450) 10^3/uL MPV 7.2 L (7.4-10.4) fL Neut % (Auto) 71.8 % Lymph % (Auto) 19.8 % [place] % (Auto) 7.3 % Eos % (Auto) 0.6 % Baso % (Auto) 0.5 % Absolute Neuts (auto) 5.7 (1.5-7.7) 10^3/ul Absolute Lymphs (auto) 1.6 (1.0-4.8) 10^3/ul Absolute Monos (auto) 0.6 (0-0.8) 10^3/ul Absolute Eos (auto) 0.1 (0-0.6) 10^3/ul Absolute Basos (auto) 0.0 (0-0.2) 10^3/ul Absolute Nucleated RBC 0.0 10^3/ul Nucleated RBC % 0.0 Assess/Plan/Problems-Billing Assessment: - Patient Problems (1) Paroxysmal atrial fibrillation Current Visit: Yes Status: Acute Code(s): I48.0 - PAROXYSMAL ATRIAL FIBRILLATION SNOMED Code(s): 611305917 Comment: Her palpitations are short lived, did not give her additional medications. May need to ask cardiology if she needs titration of her metoprolol on metoprolol succinate and xarelto trend troponins tele/monitoring (2) Sarcoidosis Current Visit: Yes Status: Acute Code(s): D86.9 - SARCOIDOSIS, UNSPECIFIED SNOMED Code(s): 64682139 Comment: follows with pulm outpatient (3) DVT prophylaxis Current Visit: Yes Status: Acute Code(s): Z29.9 - ENCOUNTER FOR PROPHYLACTIC MEASURES, UNSPECIFIED SNOMED Code(s): 197069614 Comment: already on AC (4) Full code status Current Visit: Yes Status: Acute Code(s): Z78.9 - OTHER SPECIFIED HEALTH STATUS SNOMED Code(s): 091854948
[2019-05-18] MEDS ORDERED: Metoprolol Succinate XL TAB* 25 MG PO SCH ×2 (09:00)
[2019-05-18 11:41] VITALS: BP 114/52
--- NOTE | 2019-05-18 14:36 | DS ---
CC: Dr. Stuart Giordano DISCHARGE SUMMARY: DATE OF ADMISSION: 05/18/19 DATE OF DISCHARGE: 05/18/19 PRIMARY CARE PHYSICIAN: Dr. Stuart Giordano. PRIMARY DIAGNOSIS: Atrial fibrillation with rapid ventricular response. DISCHARGE MEDICATIONS: 1. Metoprolol succinate 25 mg daily. 2. Rivaroxaban 20 mg daily. HISTORY OF PRESENT ILLNESS: Ms. Garcia is a 68-year-old woman with a history of atrial fibrillation, on Xarelto, who presents with palpitations. She experienced these palpitations at home and her nephew at bedside reports that in the ambulance on the way to the hospital she was noted to have a rapid heart rate and she was given several doses of metoprolol. In the emergency room, her heart rate was noted to be up to the 140s but that she auto converted back to sinus rhythm without intervention. She again briefly had another episode on the night of admission with heart rate in the 160s, which again was brief associated with palpitations and self resolved. The patient denies recent illness, although she states her p.o. intake may have been quite poor over the last day and she has not been hydrating as much as she normally does. Nothing else could have provoked these palpitations. HOSPITAL COURSE: In the emergency room, again the patient was not given intervention for her fast heart rate as it is self resolved. Hospitalist service was asked to admit the patient overnight for monitoring. The patient had no further episodes of tachycardia and actually her heart rate was intermittently in the 50s while sleeping, although she is asymptomatic and not lightheaded at that time. Her nephew states she received a lot of metoprolol in the ambulance and this may still have effect. Of note, she did have a mild increase in her troponin to 0.17 after a normal troponin on admission. This chronologically lined up with her experience of tachycardia and was thought to be demand from increased heart rate. The patient had an EKG, which showed normal sinus rhythm with rate 70. She was without chest pain throughout admission and she showed no concerning EKG changes. Cardiology recommended she be discharged to continue to follow up with her outpatient gradall operator, Dr. Kellogg, for further adjustments in her atrial fibrillation medications. On the day of discharge, the patient reported no symptoms and was eager to return home. REVIEW OF SYSTEMS: A complete 10-point review of systems was performed and negative. PHYSICAL EXAMINATION: Afebrile, heart rate 56, blood pressure 114/52, respiratory rate 19, oxygen saturation 99% on room air. In general, she is a well-appearing woman, in no acute distress. He is alert and interactive. Makes good eye contact. Neck: No JVD. Full range of motion intact. Lungs: Clear to auscultation bilaterally. Heart: Regular rate and rhythm. No murmurs , gallops, or rubs. Abdomen: Soft, nontender, nondistended. Extremities: Warm and well perfused without evidence of edema. PERTINENT DIAGNOSTIC STUDIES: CBC, BMP, and LFTs unremarkable. TSH 0.92. Troponin increased from normal to 0.17. EKG with normal sinus rhythm, rate [address] changes. Chest x-ray without acute cardiopulmonary process. DISCHARGE PLAN: The patient will be discharged to follow up with her primary care physician as well as Dr. Rik Kellogg, her outpatient gradall operator. No changes were made to her home medication list, so she will be continued on metoprolol succinate 25 mg daily with Xarelto. The patient and her family were given return precautions, which include but are not limited to recurrences of tachycardia, palpitations, or new symptom of lightheadedness or chest pain. DIET: She should eat a healthy diet, low in processed foods. ACTIVITY: As tolerated. DISPOSITION: home. CONDITION: Good. TIME SPENT: Approximately 60 minutes was spent on the discharge of this patient , more than half of which was spent with care coordination at bedside for interview and exam. [id number] #: [id number] MTDD
[2019-05-18] MEDS ORDERED: Rivaroxaban TAB(*) 20 MG TAB PO SCH (18:00)
== END 2019-05-18 12:30 | disposition home or self-care (01) | DRG 310 ==
LOC: ED 19:05 → MEDTELE 23:40
PROVIDERS: ADMIT Student in an Organized Health Care Education/Training Program; ATTEND Internal Medicine
DX: I48.0 Paroxysmal atrial fibrillation (principal); R79.89 Other specified abnormal findings of blood chemistry; D86.9 Sarcoidosis, unspecified; E78.00 Pure hypercholesterolemia, unspecified; Z88.1 Allergy status to other antibiotic agents; Z88.5 Allergy status to narcotic agent; Z88.6 Allergy status to analgesic agent; Z87.891 Personal history of nicotine dependence; Z79.01 Long term (current) use of anticoagulants; Z79.899 Other long term (current) drug therapy
CPT/HCPCS: 36415; 71045; 80048; 80053; 83605; 83735; 83880; 84443; 84484; 85025; 85610; 93005; 99285

== ENCOUNTER 2019-05-21 13:44 | Emergency (ER) | payer MEDICARE, OTHER ==
--- OUTSIDE RECORDS SUMMARY | 2019-05-21 14:01 | XMS REPORT | Continuity of Care Document ---
:1950 External Reference #:[id number] Author Name Rik Kellogg M.D., [facility] [place] (transmitted by agent of provider Katlyn Menon) Address [address] [place] [phone] Care Team Providers Name Role Phone Stuart Giordano MD - Family Care Team Information Grant Specialist [phone] Medicine Problems Active Problems Provider Date Palpitations Rik Kellogg M.D., G[place], [place]IA Onset: 07/29/2016 Dyspnea [facility].D., [facility]: 07/29/2016 Hyperlipidemia Rik Kellogg M.D., [facility], [place] Onset: 10/09/2018 Paroxysmal atrial fibrillation Rik Kellogg M.D., [facility], [place] Onset: Social History Type Date Description Comments [...] 25mg Tablets day Toñito Kellogg, ER 24HR ELODIA CHRISTIAN Xarelto 1 by mouth every 90tabs Rik Smith 11/14/2018 20mg Tablets day Kellogg, M.D., FACC, FASNC Vitamin C 1 by mouth every Unknown [...] mg 1 cap po Unknown daily PD 80/20 1 po daily for Unknown endocrine system Medications Administered in Office Medication SIG Qnty Indications Ordering Provider Date Inj, Regadenoson, 0.1 MG Rik Kellogg M.D., 11/19/2018 Injection FACC, FASNC Technetium TC 99M Rik Kellogg M.D., 11/19/2018 Tetrofosmin, Per Unit Dose GINO, FASNC Up To 40 Millicuries Injection Technetium TC 99M Rik Kellogg M.D., 11/19/2018 Tetrofosmin, Per Unit Dose FACC, FASNC Up To 40 Millicuries Injection Technetium TC 99M Rik Kellogg M.D., 08/29/2016 Tetrofosmin, Per Unit Dose KAVITHAC, FASNC Up To 40 Millicuries Injection Immunizations [...] Date Facility Test Result H/L Range Note CBC Auto 05/17/2019 [facility] White Blood 8.0 10^3/uL Normal 3.5-10.[address] [place] [address] [phone] Red Blood Count 4.65 10^6/uL Normal 3.70-4.87 Hemoglobin 14.5 g/dL Normal 12.0-16.0 Hematocrit 42 % Normal 35-47 Mean Corpuscular Volume 91 fL Normal 80-97 Mean Corpuscular Hemoglobin 31 pg Normal 27-31 Mean Corpuscular HGB Conc 34 g/dL Normal 31-36 Red Cell Distribution Width 13 % Normal 10-15 Platelet Count 247 10^3/uL Normal 150-450 Mean Platelet Volume 7.2 fL Low 7.4-10.4 Abs Neutrophils 5.7 10^3/uL Normal 1.5-7.7 Abs Lymphocytes 1.6 10^3/uL Normal 1.0-4.8 Abs Monocytes 0.6 10^3/uL Normal 0-0.8 Abs Eosinophils 0.1 10^3/uL Normal 0-0.6 Abs Basophils 0.0 10^3/uL Normal 0-0.2 Abs Nucleated RBC 0.0 10^3/uL Granulocyte % 71.8 % Lymphocyte % 19.8 % Monocyte % 7.3 % Eosinophil % 0.6 % Basophil % 0.5 % Nucleated Red Blood Cells % 0.0 Laboratory 05/17/2019 [facility] Lactic Acid 1.1 Normal 0.5- 2.0 1 test finding [address] mmol/[place] [address] [phone] Inr/Protime 05/17/2019 [facility] Inr 1.76 High 0.82-1.[address] [place] [address] [phone] Laboratory 05/17/2019 [facility] B-Type 43 pg/mL <=100 test finding [address] [place] [address] Peptide BNP [phone] Comp Metabolic 05/17/2019 [facility] Sodium 142 Normal 135- [address] mmol/[place] [address] [phone] Potassium 3.6 mmol/L Normal 3.5-5.0 Chloride 108 mmol/L Normal 101-111 Co2 Carbon Dioxide 25 mmol/L Normal 22-32 Anion Gap 9 mmol/L Normal 2-11 Glucose 158 mg/dL High 70-100 Blood Urea Nitrogen 10 mg/dL Normal 6-24 Creatinine 0.67 mg/dL Normal 0.51-0.95 BUN/Creatinine Ratio 14.9 Normal 8-20 Calcium 8.8 mg/dL Normal 8.6-10.3 Total Protein 6.5 g/dL Normal 6.4-8.9 Albumin 4.0 g/dL Normal 3.2-5.2 Globulin 2.5 g/dL Normal 2-4 Albumin/Globulin Ratio 1.6 Normal 1-3 Total Bilirubin 0.80 mg/dL Normal 0.2-1.0 Alkaline Phosphatase 73 U/L Normal 34-104 Alt 17 U/L Normal 7-52 Ast 21 U/L Normal 13-39 Egfr Non- 87.0 >60 Egfr 105.3 >60 3 Laboratory test 05/17/2019 [facility] Magnesium 2.0 mg/dL Normal 1.9-2.[address] [place] [address] [phone] Troponin-I (TnI) 0.02 ng/mL <0.03 4 TSH (Thyroid Stim Horm) 0.92 mcIU/mL Normal 0.34-5.60 Laboratory 11/19/2018 [facility] TSH (Thyroid 1.18 Normal 0.34 -5.60 test finding [address] Stim Horm) mcIU/[place] [address] [phone] [facility] Severe Sepsis and Septic Shock Management Bundle Measure requires all lactic acids initially measuring >2.0 mmol/L be repeated. 2 Standard intensity warfarin therapeutic range: 2.0-3.0 High intensity warfarin therapeutic range: 2.5-3.5 3 Because ethnic data is not always readily available, this report includes an eGFR for both -Americans and non- Americans. The National Kidney Disease Education Program (NKDEP) does not endorse the use of the MDRD equation for patients that are not between the ages of 18 and 70, are , have extremes of body size, muscle mass, or nutritional status, or are non- or non-. According to the National Kidney Foundation, irrespective of diagnosis, the stage of the disease is based on the level of kidney function: Stage Description GFR(mL/min/1.73 m(2)) 1 Kidney damage with normal or decreased GFR 90 2 Kidney damage with mild decrease in GFR 60-89 3 Moderate decrease in GFR 30-59 4 Severe decrease in GFR 15-29 5 Kidney failure <15 (or dialysis) 4 Troponin-I testing on Plasma Separator Tubes (PST) has a known false positive rate of 0.20-0.40%. All positive troponins reflex immediately to secondary confirmatory testing. Using the [employer] Access Immunoassay systems, the 99th percentile upper reference limit was demonstrated to be < 0.03 ng/mL. Procedures Date Code Description Status 01/24/2019 64128 Diffusing Capacity Completed 01/24/2019 32990 Plethysmography Determination Lung Volumes & Per Airway Completed Resist 01/24/2019 32149 Pulmonary Function><Bronchodil Completed 01/05/2019 05541 Sleep Study Unattended,HRT Rate,Oxygen Sat,Resp Completed Effort/Airflow 12/11/2018 11365 EKG Tracing & Interpretation Completed 11/19/2018 12029 Stress Test Completed 11/19/2018 10389 Myocardial Perfusion Imaging Tomographic (Spect) Multiple Completed Studies Medical Devices Description No Information Available Encounters Type Date Location Provider Dx Diagnosis Office Visit 03/29/2019 [facility] Luna, D86.9 Sarcoidosis, 10:30a [facility] unspecified Melony G47.33 Obstructive sleep apnea (adult) (pediatric) Office Visit 12/31/2018 10:00a [facility] Elisa D86.9 Sarcoidosis, [facility] MD Cheryl unspecified Melony R06.83 Snoring Office Visit 12/11/2018 1:00p [facility] Rik Smith I48.0 Paroxysmal atrial Of Melony Kellogg M.D., fibrillation FACC, FASME Assessments Date Code Description Provider 03/29/2019 D86.9 Sarcoidosis, unspecified Elisa Luna MD 03/29/2019 G47.33 Obstructive sleep apnea (adult) Elisa Luna MD (pediatric) 01/24/2019 D86.9 Sarcoidosis, unspecified Elisa Luna MD 01/05/2019 G47.33 Obstructive sleep apnea (adult) Elisa Luna MD (pediatric) 12/31/2018 D86.9 Sarcoidosis, unspecified Elisa Luna MD 12/31/2018 R06.83 Snoring Elisa Luna MD 12/11/2018 I48.0 Paroxysmal atrial fibrillation Rik Kellogg M.D., [facility] , [facility] 11/19/2018 R06.00 Dyspnea, unspecified Rik Kellogg M.D., [facility], [facility] Plan of Treatment Future Appointment(s):03/30/2020 10:30 am - Kenia Goss NP at [facility]03/29/2019 - Elisa Luna, MDD86.9 Sarcoidosis, unspecifiedFollow up:1 yearG47.33 Obstructive sleep apnea (adult) ( pediatric) Functional Status Description No Information Available Mental Status Description No Information Available Referrals Description No Information Available
[2019-05-21] MEDS ORDERED: Oxymetazoline 0.05% NASAL SPR* 15 ML BTL ONE (14:19)
[2019-05-21] MEDS ORDERED: Oxymetazoline 0.05% NASAL SPR* 15 ML BTL BOTH NARES ONE (14:21)
--- NOTE | 2019-05-21 14:21 | ED ---
Throat Pain/Nasal Congestion - HPI Summary HPI Summary: Patient is a 68 y/o F presenting to [facility] with complaints of epistaxis that onset around 1300 05/21/19 after the patient blew her nose into a tissue. She states that bleeding temporarily stopped but then resumed quickly and has persisted since. She states that she can feel blood in the back of her throat. On vitals, temp is negative for fever. Patient denies Hx of epistaxis. She is on Xarelto for afib. PMHx of HTN and diabetes denied. Patient notes that she was seen at [facility] 05/17/19 for elevated HR. She denies tobacco and substance usage but notes rare alcohol consumption. Home medications and allergies are reviewed. - History of Current Complaint Chief Complaint: EDEpistaxis Time Seen by Provider: 05/21/19 14:13 Hx Obtained From: Patient Onset/Duration: Still Present Severity: Moderate Associated Signs And Symptoms: Positive: Nasal Discharge Cough: None - Allergies/Home Medications Allergies/Adverse Reactions: Allergies Allergy/AdvReac Type Severity Reaction Status Date / Time levofloxacin Allergy Unknown Verified 05/17/19 19:24 Reaction Details morphine Allergy Unknown Verified 05/17/19 19:24 Reaction Details oxycodone Allergy Dizziness Verified 05/17/19 19:24 PMH/Surg Hx/FS Hx/Imm Hx Endocrine/Hematology History: Denies: Hx Diabetes, Hx Thyroid Disease Cardiovascular History: Reports: Hx Hypercholesterolemia Denies: Hx Deep Vein Thrombosis, Hx Embolism, Hx Peripheral Vascular Disease Respiratory History: Reports: Hx Sleep Apnea - CPAP at night History: Reports: Other Problems/Disorders - Denies urinary issues Musculoskeletal History: Denies: Hx Arthritis, Hx Osteoporosis Sensory History: Reports: Hx Contacts or Glasses Denies: Hx Cataracts, Hx Glaucoma, Hx Hearing Aid Opthamlomology History: Reports: Hx Contacts or Glasses Denies: Hx Cataracts, Hx Glaucoma Neurological History: Denies: Hx Headaches, Hx Seizures, Hx Transient Ischemic Attacks (TIA) - Surgical History Surgery Procedure, Year, and Place: hysterectomy Infectious Disease History: No Infectious Disease History: Reports: Hx Shingles - apr 2016 Denies: Traveled Outside the [place] in Last 30 Days - Family History Known Family History: Positive: Cardiac Disease, Other - Yes - Stroke, aneurysm , [place] - Social History Alcohol Use: Rare Hx Substance Use: No Substance Use Type: Reports: None Hx Tobacco Use: Yes Smoking Status (MU): Former Smoker Have You Smoked in the Last Year: No - "only when I drank" Review of Systems Negative: Fever - On vitals, temp is negative for fever. Positive: Epistaxis All Other Systems Reviewed And Are Negative: Yes Physical Exam - Summary Physical Exam Summary: Constitutional: Well-developed, Well-nourished, Alert. (-) Distressed Skin: Warm, Dry HENT: Normocephalic; Atraumatic; Trickling blood from right nares and down posterior pharynx. Eyes: Conjunctiva normal Neck: Musculoskeletal ROM normal neck. (-) JVD, (-) Stridor, (-) Tracheal deviation Cardio: Rhythm regular, rate normal, Heart sounds normal; Intact distal pulses; Radial pulses are 2+ and symmetric. (-) Murmur Pulmonary/Chest wall: Effort normal. (-) Respiratory distress, (-) Wheezes, (-) Rales Abd: Soft, (-) tenderness, (-) Distension, (-) Guarding, (-) Rebound Musculoskeletal: (-) Edema Lymph: (-) Cervical adenopathy Neuro: Alert, Oriented x3 Psych: Mood and affect Normal Triage Information Reviewed: Yes Vital Signs On Initial Exam: Initial Vitals Temp Pulse Resp BP Pulse Ox 98.3 F 77 18 179/116 97 05/21/19 13:51 05/21/19 13:51 05/21/19 13:51 05/21/19 13:51 05/21/19 13:51 Vital Signs Reviewed: Yes Procedures - Sedation Patient Received Moderate/Deep Sedation with Procedure: No Diagnostics - Vital Signs Vital Signs Temp Pulse Resp BP Pulse Ox 05/21/19 13:51 98.3 F 77 18 179/116 97 - Laboratory Lab Statement: Any lab studies that have been ordered have been reviewed, and results considered in the medical decision making process. Re-Evaluation - Re-Evaluation First Eval Re-Evaluation Time: 14:50 Change: Improved Comment: Bleeding is controlled after suction and pressure. Will observe for 30 minutes. Second Eval Re-Evaluation Time: 15:42 Change: Improved Comment: Patient's bleeding has been controlled. She will be discharged to home. EENT Course/Dx - Course Course Of Treatment: Patient is here with epistaxis on Xarelto. Patient has active bleeding from her right nares. Patient cleared clots out of her nose, 2 sprays of Afrin were applied, and pressure was held for 20 minutes. Patient's nosebleed stopped. Patient was monitored for an hour after her nosebleed stops and no recurrence of rubs staxis occurred. Patient was discharged. - Diagnoses Provider Diagnoses: Epistaxis Discharge ED - Sign-Out/Discharge Documenting (check all that apply): Patient Departure - discharge - Discharge Plan Condition: Stable Disposition: HOME Patient Education Materials: Nosebleed (ED) Referrals: Rik Torre MD [Medical Doctor] - Stuart Giordano MD [Primary Care Provider] - Additional Instructions: IF YOU START BLEEDING AGAIN, USE THE TECHNIQUES WE DISCUSSED. IF BLEEDING PERSISTS, RETURN TO THE ED. KEEP YOUR SCHEDULED APPOINTMENT WITH DR. TORRE TOMORROW. - Billing Disposition and Condition Condition: STABLE Disposition: Home - Attestation Statements Document Initiated by Barbaraibe: Yes Documenting Scribe: KALE ACKERMAN Provider For Whom Claire is Documenting (Include Credential): ROLANDO HUFFMAN MD Scribe Attestation: KALE Cheng scrblaired for ROLANDO HUFFMAN MD on 05/21/19 at 2017. Scribe Documentation Reviewed: Yes Provider Attestation: The documentation as recorded by the KALE lopez accurately reflects the service I personally performed and the decisions made by , ROLANDO HUFFMAN MD Status of Scribe Document: Viewed
[2019-05-21 16:21] VITALS: BP 142/76
== END 2019-05-21 16:18 | disposition home or self-care (01) ==
LOC: ED 13:44
DX: R04.0 Epistaxis (principal); I48.91 Unspecified atrial fibrillation; Z79.01 Long term (current) use of anticoagulants; I10 Essential (primary) hypertension; E78.00 Pure hypercholesterolemia, unspecified; Z88.6 Allergy status to analgesic agent; Z88.5 Allergy status to narcotic agent; Z88.1 Allergy status to other antibiotic agents; Z87.891 Personal history of nicotine dependence; Z90.710 Acquired absence of both cervix and uterus; G47.30 Sleep apnea, unspecified; I48.0 Paroxysmal atrial fibrillation; R53.83 Other fatigue
CPT/HCPCS: 99281; A9270-GY

== ENCOUNTER 2019-05-21 16:14 | Emergency (ER) | payer MEDICARE, OTHER ==
--- OUTSIDE RECORDS SUMMARY | 2019-05-21 16:49 | XMS REPORT | Continuity of Care Document ---
:1950 External Reference #:[id number] Author Name Rik Kellogg M.D., [facility] [place] (transmitted by agent of provider Katlyn Menon) Address [address] [place] [phone] Care Team Providers Name Role Phone Stuart Giordano MD - Family Care Team Information Mayonnaise Mixer [phone] Medicine Problems Active Problems Provider Date Palpitations Rik Kellogg M.D., [place], [place] Onset: 07/29/2016 Dyspnea [facility].D., [facility]: 07/29/2016 Hyperlipidemia Rik Kellogg M.D., [facility], [place] Onset: 10/09/2018 Paroxysmal atrial fibrillation Rik Kellogg M.D., [facility], [place] Onset: Social History Type Date Description [...] Result H/L Range Note CBC Auto 05/17/2019 [facility] White Blood 8.0 10^3/uL Normal 3.5-10.[address] [place] [address] [phone] Red Blood Count 4.65 10^6/uL Normal 3.70-4.87 [...] Red Blood Cells % 0.0 Laboratory 05/17/2019 [facility] Lactic Acid 1.1 Normal 0.5- 2.0 1 test finding [address] mmol/[place] [address] [phone] Inr/Protime 05/17/2019 [facility] Inr 1.76 High 0.82-1.[address] [place] [address] [phone] Laboratory 05/17/2019 [facility] B-Type 43 pg/mL <=100 test finding [address] [place] [address] Peptide BNP [phone] Comp Metabolic 05/17/2019 [facility] Sodium 142 Normal 135- [address] mmol/[place] [address] [phone] Potassium 3.6 mmol/L Normal 3.5-5.0 Chloride 108 [...] Egfr 105.3 >60 3 Laboratory test 05/17/2019 [facility] Magnesium 2.0 mg/dL Normal 1.9-2.[address] [place] [address] [phone] Troponin-I (TnI) 0.02 ng/mL <0.03 4 TSH (Thyroid Stim Horm) 0.92 mcIU/mL Normal 0.34-5.60 Laboratory 11/19/2018 [facility] TSH (Thyroid 1.18 Normal 0.34 -5.60 test finding [address] Stim Horm) mcIU/[place] [address] [phone] 1 [facility] Severe Sepsis and Septic Shock Management [...] immediately to secondary confirmatory testing. Using the [employer] Access Immunoassay systems, the 99th percentile upper reference limit was demonstrated to be < 0.03 ng/mL. Procedures Date Code Description Status 01/24/2019 30749 Diffusing Capacity Completed 01/24/2019 17455 Plethysmography Determination Lung Volumes & Per Airway Completed Resist 01/24/2019 30261 Pulmonary Function><Bronchodil Completed 01/05/2019 72001 Sleep Study Unattended,HRT Rate,Oxygen Sat,Resp Completed Effort/Airflow 12/11/2018 71918 EKG Tracing & Interpretation Completed 11/19/2018 64969 Stress Test Completed 11/19/2018 40799 Myocardial Perfusion Imaging Tomographic (Spect) Multiple Completed Studies Medical Devices Description No Information Available Encounters Type Date Location Provider Dx Diagnosis Office Visit 05/18/2019 [facility] Leah Daugherty, I48.0 Paroxysmal atrial 9:49a regina Tejeda MD fibrillation Hospitalists Office Visit 05/17/2019 [facility] Sherry Guillermo, I48.0 Paroxysmal atrial 9:48a regina Tejeda M.D. fibrillation Hospitalists D86.9 Sarcoidosis, unspecified Office Visit 03/29/2019 10:30a [facility] Elisa D86.9 Sarcoidosis, [facility] MD Cheryl unspecified [employer] G47.33 Obstructive sleep apnea (adult) (pediatric) Office Visit 12/31/2018 10:00a [facility]isa D86.9 Sarcoidosis, [facility] MD Cheryl unspecified [employer] R06.83 Snoring Office Visit 12/11/2018 1:00p [facility] Rik Smith I48.0 Paroxysmal atrial Of Melony Kellogg M.D., fibrillation FACC, FASNC Assessments Date Code Description Provider 05/18/2019 I48.0 Paroxysmal atrial fibrillation Leah Arbach, MD 05/17/2019 I48.0 Paroxysmal atrial fibrillation Sherry Guillermo M.D. 05/17/2019 D86.9 Sarcoidosis, unspecified Sherry Guillermo M.D. 03/29/2019 D86.9 Sarcoidosis, unspecified Elisa Luna MD 03/29/2019 G47.33 Obstructive sleep apnea (adult) Elisa Luna MD (pediatric) 01/24/2019 D86.9 Sarcoidosis, unspecified Elisa Luna MD 01/05/2019 G47.33 Obstructive sleep apnea (adult) Elisa Luna MD (pediatric) 12/31/2018 D86.9 Sarcoidosis, unspecified Elisa Luna MD 12/31/2018 R06.83 Snoring Elisa Luna MD 12/11/2018 I48.0 Paroxysmal atrial fibrillation Rik Kellogg M.D., [facility] , [facility] 11/19/2018 R06.00 Dyspnea, unspecified Rik Kellogg M.D., [facility], [facility] Plan of Treatment Future Appointment(s):03/30/2020 10:30 am - Kenia Goss NP at [facility]03/29/2019 - Elisa Luna, MDD86.9 Sarcoidosis, unspecifiedFollow up:1 yearG47.33 Obstructive sleep apnea (adult) ( pediatric) Functional Status Description No Information Available Mental Status Description No Information Available Referrals Description No Information Available
--- NOTE | 2019-05-21 18:53 | ED ---
Throat Pain/Nasal Congestion - HPI Summary HPI Summary: Patient is a 68 y/o F presenting to [facility] with complaints of epistaxis. The patient was evaluated today for the same Sx. Bleeding was controlled in ED. She was observed in ED and was without recurrence of epistaxis. Patient was discharged to home. However, bleeding resumed immediately after the patient was discharged from the ED. Patient states that clip was applied to nose in [place] by nurse, bleeding has since resolved. Last bleeding episode occurred one hour ago. Patient states that her nose feels congested due to blood clotting. Home medications and allergies are reviewed. - History of Current Complaint Chief Complaint: EDEpistaxis Time Seen by Provider: 05/21/19 18:44 Hx Obtained From: Patient Onset/Duration: Resolved Severity: Moderate Associated Signs And Symptoms: Positive: Nasal Discharge - epistaxis Cough: None - Allergies/Home Medications Allergies/Adverse Reactions: Allergies Allergy/AdvReac Type Severity Reaction Status Date / Time levofloxacin Allergy Unknown Verified 05/17/19 19:24 Reaction Details morphine Allergy Unknown Verified 05/17/19 19:24 Reaction Details oxycodone Allergy Dizziness Verified 05/17/19 19:24 PMH/Surg Hx/FS Hx/Imm Hx Endocrine/Hematology History: Denies: Hx Diabetes, Hx Thyroid Disease Cardiovascular History: Reports: Hx Hypercholesterolemia Denies: Hx Deep Vein Thrombosis, Hx Embolism, Hx Peripheral Vascular Disease Respiratory History: Reports: Hx Sleep Apnea - CPAP at night History: Reports: Other Problems/Disorders - Denies urinary issues Musculoskeletal History: Denies: Hx Arthritis, Hx Osteoporosis Sensory History: Reports: Hx Contacts or Glasses Denies: Hx Cataracts, Hx Glaucoma, Hx Hearing Aid Opthamlomology History: Reports: Hx Contacts or Glasses Denies: Hx Cataracts, Hx Glaucoma Neurological History: Denies: Hx Headaches, Hx Seizures, Hx Transient Ischemic Attacks (TIA) - Surgical History Surgery Procedure, Year, and Place: hysterectomy Infectious Disease History: No Infectious Disease History: Reports: Hx Shingles - apr 2016 Denies: Traveled Outside the [place] in Last 30 Days - Family History Known Family History: Positive: Cardiac Disease, Other - Yes - Stroke, aneurysm , [place] - Social History Alcohol Use: Rare Hx Substance Use: No Substance Use Type: Reports: None Hx Tobacco Use: Yes Smoking Status (MU): Former Smoker Have You Smoked in the Last Year: No - "only when I drank" Review of Systems Negative: Fever - on vitals, temp is 98.3 F Positive: Epistaxis All Other Systems Reviewed And Are Negative: Yes Physical Exam - Summary Physical Exam Summary: Constitutional: Well-developed, Well-nourished, Alert. (-) Distressed Skin: Warm, Dry HENT: Normocephalic; Atraumatic; No active bleeding from nares, there is dried blood to right nare. Eyes: Conjunctiva normal Neck: Musculoskeletal ROM normal neck. (-) JVD, (-) Stridor, (-) Tracheal deviation Cardio: Rhythm regular, rate normal, Heart sounds normal; Intact distal pulses; Radial pulses are 2+ and symmetric. (-) Murmur Pulmonary/Chest wall: Effort normal. (-) Respiratory distress, (-) Wheezes, (-) Rales Abd: Soft, (-) tenderness, (-) Distension, (-) Guarding, (-) Rebound Musculoskeletal: (-) Edema Lymph: (-) Cervical adenopathy Neuro: Alert, Oriented x3 Psych: Mood and affect Normal Triage Information Reviewed: Yes Vital Signs On Initial Exam: Initial Vitals Temp Pulse Resp BP Pulse Ox 98.3 F 61 18 169/67 97 05/21/19 16:30 05/21/19 16:30 05/21/19 16:30 05/21/19 16:30 05/21/19 16:30 Vital Signs Reviewed: Yes Procedures - Sedation Patient Received Moderate/Deep Sedation with Procedure: No Diagnostics - Vital Signs Vital Signs Temp Pulse Resp BP Pulse Ox 05/21/19 18:32 97.2 F 61 16 130/61 95 05/21/19 16:30 98.3 F 61 18 169/67 97 - Laboratory Lab Statement: Any lab studies that have been ordered have been reviewed, and results considered in the medical decision making process. EENT Course/Dx - Course Course Of Treatment: Patient is here with epistaxis. Patient seen by myself earlier today. Patient was monitored for an hour in the ED with no recurrence of her bleeding. When patient went to her car in the parking lot, patient's nose started bleeding again. Patient checked back in. Patient applied pressure to her nose on the waiting room and her epistaxis resolved. Patient had no bleeding one hour prior to my visiting with her the second time. Patient was offered TXA gauze applied to her nostril but declined. - Diagnoses Provider Diagnoses: Epistaxis Discharge ED - Sign-Out/Discharge Documenting (check all that apply): Patient Departure - discharge - Discharge Plan Condition: Stable Disposition: HOME Patient Education Materials: Nosebleed (ED) Referrals: Stuart Giordano MD [Primary Care Provider] - 3 Days Additional Instructions: PLEASE RETURN TO ED FOR ANY NEW OR WORSENING SYMPTOMS. PLEASE FOLLOW UP WITH YOUR PRIMARY CARE PHYSICIAN WITHIN THREE DAYS. - Billing Disposition and Condition Condition: STABLE Disposition: Home - Attestation Statements Document Initiated by Barbaraibe: Yes Documenting Scribe: KALE ACKERMAN Provider For Whom Barbaraibigor is Documenting (Include Credential): ROLANDO HUFFMAN MD Scribe Attestation: KALE Cheng, scribed for ROLANDO HUFFMAN MD on 05/21/19 at 2153. Scribe Documentation Reviewed: Yes Provider Attestation: The documentation as recorded by the KALE lopez accurately reflects the service I personally performed and the decisions made by , ROLANDO HUFFMAN MD Status of Scribe Document: Viewed
[2019-05-21 19:17] VITALS: BP 132/74
== END 2019-05-21 19:16 | disposition home or self-care (01) ==
LOC: ED 16:14
DX: R04.0 Epistaxis (principal); G47.30 Sleep apnea, unspecified; Z79.01 Long term (current) use of anticoagulants; Z88.1 Allergy status to other antibiotic agents; Z88.5 Allergy status to narcotic agent; Z87.891 Personal history of nicotine dependence
CPT/HCPCS: 99282

== ENCOUNTER 2019-05-21 21:08 | Emergency (ER) | payer MEDICARE, OTHER ==
--- NOTE | 2019-05-21 21:21 | ED ---
Palpitations / Dysrhythmia - HPI Summary HPI Summary: 68 year old F brought in by EMS to [facility] accompanied by family member complains of tachycardia and palpitations which started minutes prior to arrival today 05/21. Patient was seen here earlier today for epistaxis, was discharged, and developed tachycardia and palpitations on her way home from the hospital. Hx paroxysmal atrial fibrillation. Patient states her symptoms have resolved upon arrival to the ED. She reports fatigue currently. Patient denies chest pain, shortness of breath, dizziness, bilateral lower extremity edema. FHx pacemakers. - History of Current Complaint Time Seen by Provider: 05/21/19 21:14 Hx Obtained From: Patient Onset/Duration: Lasting Minutes, Resolved Timing: Constant Severity Currently: None Aggravating: Nothing Alleviating: Nothing - Allergy/Home Medications Allergies/Adverse Reactions: Allergies Allergy/AdvReac Type Severity Reaction Status Date / Time levofloxacin Allergy Unknown Verified 05/17/19 19:24 Reaction Details morphine Allergy Unknown Verified 05/17/19 19:24 Reaction Details oxycodone Allergy Dizziness Verified 05/17/19 19:24 PMH/Surg Hx/FS Hx/Imm Hx Endocrine/Hematology History: Denies: Hx Diabetes, Hx Thyroid Disease Cardiovascular History: Reports: Hx Hypercholesterolemia Denies: Hx Deep Vein Thrombosis, Hx Embolism, Hx Peripheral Vascular Disease Respiratory History: Reports: Hx Sleep Apnea - CPAP at night History: Reports: Other Problems/Disorders - Denies urinary issues Musculoskeletal History: Denies: Hx Arthritis, Hx Osteoporosis Sensory History: Reports: Hx Contacts or Glasses Denies: Hx Cataracts, Hx Glaucoma, Hx Hearing Aid Opthamlomology History: Reports: Hx Contacts or Glasses Denies: Hx Cataracts, Hx Glaucoma Neurological History: Denies: Hx Headaches, Hx Seizures, Hx Transient Ischemic Attacks (TIA) - Surgical History Surgery Procedure, Year, and Place: hysterectomy Infectious Disease History: Reports: Hx Shingles - apr 2016 - Family History Known Family History: Positive: Cardiac Disease, Other - Yes - Stroke, aneurysm , [place], pacemakers - Social History Alcohol Use: Rare Hx Substance Use: No Substance Use Type: Reports: None Hx Tobacco Use: Yes Smoking Status (MU): Former Smoker Have You Smoked in the Last Year: No - "only when I drank" Review of Systems Positive: Fatigue Positive: Palpitations, Other - tachycardia. Negative: Chest Pain Negative: Shortness Of Breath Negative: Edema - BLE Neurological: Negative - Dizziness All Other Systems Reviewed And Are Negative: Yes Physical Exam - Summary Physical Exam Summary: Appearance: Well-appearing, Well-nourished, lying in bed comfortably Skin: Warm, dry, no obvious rash Eyes: sclera anicteric, no conjunctival pallor ENT: mucous membranes moist, pharynx appears normal Neck: Supple, nontender Respiratory: Clear to auscultation, no signs of respiratory distress Cardiovascular: Normal S1, S2. No murmurs. Normal distal pulses in tibial and radial bilaterally. Abdomen: Soft, nontender, normal active bowel sounds present Musculoskeletal: Normal, Strength/ROM Intact Neurological: A&Ox3, awake and alert, mentation is normal, speech is fluent and appropriate Psychiatric: affect is normal, does not appear anxious or depressed Triage Information Reviewed: Yes Vital Signs Reviewed: Yes Procedures - Sedation Patient Received Moderate/Deep Sedation with Procedure: No Diagnostics - Laboratory Lab Statement: Any lab studies that have been ordered have been reviewed, and results considered in the medical decision making process. - EKG 2142 Cardiac Rate: NL - 70 BPM EKG Rhythm: Sinus Rhythm Summary of EKG Findings: NSR at 70 BPM. ED physician has reviewed and interpreted this EKG. Re-Evaluation - Re-Evaluation First Eval Re-Evaluation Time: 21:55 Comment: patient has no symptoms. she is agreeable to discharge. she understands ED return instructions Course/Dx - Course Course Of Treatment: 68 y/o F brought in by EMS complains of tachycardia and palpitations which started minutes prior to arrival today 05/21/2019. Hx paroxysmal atrial fibrillation. Her symptoms have resolved upon arrival to the ED. No chest pain, shortness of breath, dizziness. She reports fatigue currently. Patient was seen here earlier today and had blood work done which was normal. Physical exam unremarkable. An EKG shows NSR at 70 BPM. Patient' s symptoms have resolved spontaenously upon arrival to the ED. She is asymptomatic. Patient will be discharged home with follow up from her primary care provider and her cake puller Dr. Kellogg in 2-3 days. Patient was instructed to return to Emergency Department for new or worsening symptoms. Patient understands and is agreeable to this plan. - Diagnoses Provider Diagnoses: Paroxysmal atrial fibrillation Discharge ED - Sign-Out/Discharge Documenting (check all that apply): Patient Departure - Discharge Plan Condition: Improved Disposition: HOME Patient Education Materials: A-fib (Atrial Fibrillation) (ED) Referrals: Rik Kellogg MD [Medical Doctor] - Stuart Giordano MD [Primary Care Provider] - - Billing Disposition and Condition Condition: IMPROVED Disposition: Home - Attestation Statements Document Initiated by Claire: Yes Documenting Scribe: Betty Vasquez Provider For Whom Barbaraibigor is Documenting (Include Credential): Jake Corbin MD Scribe Attestation: Betty Cheng, scribed for Jake Corbin MD on 05/22/19 at 0536. Scribe Documentation Reviewed: Yes Provider Attestation: The documentation as recorded by the Betty lopez accurately reflects the service I personally performed and the decisions made by me, Jake Corbin MD Status of Scribe Document: Viewed
[2019-05-21 22:04] VITALS: BP 146/85
== END 2019-05-21 22:39 | disposition home or self-care (01) ==
LOC: ED 21:08
DX: I48.0 Paroxysmal atrial fibrillation (principal); Z79.01 Long term (current) use of anticoagulants; R53.83 Other fatigue; G47.30 Sleep apnea, unspecified; Z88.1 Allergy status to other antibiotic agents; Z88.5 Allergy status to narcotic agent; Z87.891 Personal history of nicotine dependence
CPT/HCPCS: 93005; 99282

== ENCOUNTER 2022-06-29 07:20 | Inpatient (IN) ==
[2022-06-29 08:08] LABS: INR 1.85 (0.88-1.18)
[2022-06-29 08:18] LABS: ABS Eosinophils 0.1 10^3/ul (0-0.6); ABS Lymphocytes 1.4 10^3/ul (1.0-4.8); ABS Monocytes 0.7 10^3/ul (0-0.8); ABS Neutrophils 5.3 10^3/ul (1.5-7.7); Eosinophil % 1.6 %; Hematocrit 42 % (35-47); Hemoglobin 13.9 g/dL (12.0-16.0); Lymphocyte % 18.9 %; Mean Corpuscular HGB Conc 33 g/dL (31-36); Mean Corpuscular Hemoglobin 30 pg (27-31); Mean Corpuscular Volume 90 fL (80-97); Mean Platelet Volume 8.6 fL (7.4-10.4); Nucleated Red Blood Cells % 0.1; Platelet Count 221 10^3/uL (150-450); Red Blood Count 4.62 10^6 /uL (3.70-4.87); Red Cell Distribution Width 13 % (10-15); White Blood Count 7.6 10^3/uL (3.5-10.8)
[2022-06-29 08:36] LABS: Albumin/Globulin Ratio 1.8 (1-3); Calcium 9.3 mg/dL (8.6-10.3); Creatinine, Serum 0.79 mg/dL (0.51-0.95); Globulin 2.2 g/dL (2-4); Potassium 4.2 mmol/L (3.5-5.0); Total Bilirubin 0.9 mg/dL (0.2-1.0); Total Protein 6.2 g/dL (6.4-8.9); eGFR CKD-EPI 78.9 (>60)
[2022-06-29 09:00] LABS: Magnesium 2.1 mg/dL (1.9-2.7)
[2022-06-29 09:17] LABS: High Sensitivity Troponin 1 Hr 7 pg/mL (<15)
[2022-06-30 07:39] LABS: ABS Eosinophils 0.2 10^3/ul (0-0.6); ABS Lymphocytes 1.4 10^3/ul (1.0-4.8); ABS Monocytes 0.6 10^3/ul (0-0.8); ABS Neutrophils 3.6 10^3/ul (1.5-7.7); Eosinophil % 2.8 %; Hematocrit 41 % (35-47); Hemoglobin 13.8 g/dL (12.0-16.0); Lymphocyte % 23.6 %; Mean Corpuscular HGB Conc 34 g/dL (31-36); Mean Corpuscular Hemoglobin 31 pg (27-31); Mean Corpuscular Volume 92 fL (80-97); Mean Platelet Volume 8.7 fL (7.4-10.4); Platelet Count 218 10^3/uL (150-450); Red Blood Count 4.47 10^6 /uL (3.70-4.87); Red Cell Distribution Width 13 % (10-15); White Blood Count 5.8 10^3/uL (3.5-10.8)
[2022-06-30 07:52] LABS: Calcium 9.3 mg/dL (8.6-10.3); Creatinine, Serum 0.67 mg/dL (0.51-0.95); HDL Cholesterol 45.2 mg/dL; Potassium 4.2 mmol/L (3.5-5.0); eGFR CKD-EPI 92.2 (>60)
[2022-06-30 08:05] LABS: TSH Ultra Thyroid Stim Horm 1.44 mcIU/mL (0.34-5.60)
[2022-07-01] MEDS: NS 0.9% 1000 ml BAG 1,000 ML IV SCH ×2 (00:11→13:20)
[2022-07-01 07:28] LABS: ABS Eosinophils 0.1 10^3/ul (0-0.6); ABS Lymphocytes 1.3 10^3/ul (1.0-4.8); ABS Monocytes 0.6 10^3/ul (0-0.8); ABS Neutrophils 3.5 10^3/ul (1.5-7.7); Eosinophil % 2.4 %; Hematocrit 40 % (35-47); Hemoglobin 13.7 g/dL (12.0-16.0); Lymphocyte % 22.9 %; Mean Corpuscular HGB Conc 34 g/dL (31-36); Mean Corpuscular Hemoglobin 31 pg (27-31); Mean Corpuscular Volume 91 fL (80-97); Mean Platelet Volume 8.4 fL (7.4-10.4); Nucleated Red Blood Cells % 0.1; Platelet Count 218 10^3/uL (150-450); Red Cell Distribution Width 13 % (10-15); White Blood Count 5.5 10^3/uL (3.5-10.8)
[2022-07-01 08:00] LABS: Calcium 9.1 mg/dL (8.6-10.3); Creatinine, Serum 0.64 mg/dL (0.51-0.95); Magnesium 2.1 mg/dL (1.9-2.7); Potassium 4.2 mmol/L (3.5-5.0); eGFR CKD-EPI 93.3 (>60)
[2022-07-01] MEDS ORDERED: ceFAZolin 2 GM in NS PREMIX 2 GM/100 ML BAG IVPB ONE (08:00)
[2022-07-01] MEDS ORDERED: ceFAZolin SYR FLUSH 1 GM/10 ML for pocket flush (cardiology) FLUSH ONE (08:00)
[2022-07-01] MEDS ORDERED: Midazolam 10 mg/10 ml VIAL 1 mg/ml 10 ml VIAL (10 mg) IV SLOW PU ONE (12:57)
[2022-07-01] MEDS ORDERED: fentaNYL 100 mcg/2 ml 50 MCG/ML VIAL IV SLOW PU ONE (12:57)
[2022-07-01] MEDS ORDERED: Lidocaine 1% VIAL 10 MG/ML VIAL 30 ML ONE (15:25)
[2022-07-01] MEDS ORDERED: fentaNYL 100 mcg/2 ml 50 MCG/ML VIAL ONE (15:34)
[2022-07-01] MEDS ORDERED: Midazolam 5 mg/5 ml VIAL 1 mg/ml 5 ml VIAL (5 mg) ONE (15:34)
[2022-07-01] MEDS ORDERED: HYDROcodone/ACETAMIN 5/325 mg TAB PO PRN (18:01)
[2022-07-02] MEDS ORDERED: ceFAZolin VIAL 1 GM in NS 0.9% 50 ML 50 ML IVPB SCH
[2022-07-02 06:33] LABS: ABS Eosinophils 0.1 10^3/ul (0-0.6); ABS Lymphocytes 1.1 10^3/ul (1.0-4.8); ABS Monocytes 0.7 10^3/ul (0-0.8); ABS Neutrophils 4.4 10^3/ul (1.5-7.7); Eosinophil % 1.9 %; Hematocrit 40 % (35-47); Hemoglobin 13.8 g/dL (12.0-16.0); Lymphocyte % 16.7 %; Mean Corpuscular HGB Conc 34 g/dL (31-36); Mean Corpuscular Hemoglobin 31 pg (27-31); Mean Corpuscular Volume 91 fL (80-97); Mean Platelet Volume 7.7 fL (7.4-10.4); Platelet Count 212 10^3/uL (150-450); Red Blood Count 4.46 10^6 /uL (3.70-4.87); Red Cell Distribution Width 13 % (10-15); White Blood Count 6.4 10^3/uL (3.5-10.8)
[2022-07-02 07:07] LABS: Creatinine, Serum 0.63 mg/dL (0.51-0.95); Potassium 4.1 mmol/L (3.5-5.0); eGFR CKD-EPI 93.6 (>60)
[2022-07-02 10:54] VITALS: BP 144/65
[2022-07-02 15:13] LABS: Anaplasma phagocytophilum Negative (Negative); B. miyamotoi PCR, B Negative (Negative); Babesia divergens/MO-1 Negative (Negative); Babesia ducani Negative (Negative); Ehrlichia chaffeensis Negative (Negative); Ehrlichia ewingii/canis Negative (Negative); Ehrlichia muris eauclairensis Negative (Negative)
== END 2022-07-02 15:30 | disposition home or self-care (01) | DRG 244 ==
LOC: ED 07:20 → EDHOLD 13:58 → MEDTELE 16:51
PROVIDERS: ADMIT Internal Medicine; ATTEND Internal Medicine

== ENCOUNTER 2024-05-09 05:37 | Observation (INO) ==
[~2024-05-09 05:37] MED LIST: HYDROmorphone 1 MG/1 ML SYRINGE IV PRN; Naloxone 0.4 mg VIAL 0.4 mg/ml 1 ml VIAL IV PRN; Ondansetron 4 mg VIAL 2 MG/ML 2 ml VIAL IV PRN; ROPIVACAINE 5 MG/ML 30 ML BTL (0.5%) ONE; fentaNYL 100 mcg/2 ml 50 MCG/ML VIAL IV PRN
[2024-05-09] MEDS ORDERED: Tranexamic Acid 1 GM/100ML BAG 2,000 MG/200 ML BAG IV ONE (06:04)
[2024-05-09] MEDS ORDERED: ceFAZolin 2 GM PREMIX 2 GM/50 ML BAG ONE (06:04)
[2024-05-09] MEDS ORDERED: Glycopyrrolate IV 0.2 MG/ML 1 ML VIAL ONE (06:24)
[2024-05-09] MEDS ORDERED: Ondansetron 4 mg VIAL 2 MG/ML 2 ml VIAL ONE (06:24)
[2024-05-09] MEDS ORDERED: Dexamethasone IV 4 MG/ML VIAL 1 ml VIAL ONE (06:24)
[2024-05-09] MEDS ORDERED: Lidocaine 2% PF 5 ML VIAL ONE (06:24)
[2024-05-09] MEDS ORDERED: Phenylephrine IV 10 MG/ML 1 ml VIAL ONE (06:24)
[2024-05-09] MEDS ORDERED: fentaNYL 100 mcg/2 ml 50 MCG/ML VIAL ONE (06:24)
[2024-05-09] MEDS ORDERED: Midazolam 2 mg/2 ml VIAL 1 mg/ml 2 ml VIAL (2 mg) ONE ×2 (06:24→07:39)
[2024-05-09 06:27] LABS: Rapid COVID-19 Molecular Undetected (Undetected)
[2024-05-09] MEDS: Lactated Ringers 1000 ml BAG 1,000 ML IV SCH ×2 (06:38→11:29)
[2024-05-09] MEDS: Buffered Lidocaine 1% SYRIN 1 ml INTRADERM ONE (06:43)
[2024-05-09] MEDS: Scopolamine 1 mg/72hr PATCH TRANSDERM ONE (06:43)
[2024-05-09] MEDS ORDERED: KETAMINE HCL 10 MG/ML 20 ml VIAL (200 MG) ONE (07:38)
[2024-05-09] MEDS ORDERED: Ondansetron 4 mg VIAL 2 MG/ML 2 ml VIAL IV PRN (09:50)
[2024-05-09] MEDS ORDERED: Ondansetron ODT 4 mg TAB 4 MG TAB PO PRN (09:50)
[2024-05-09] MEDS ORDERED: Lactulose 30 ml UDC PO PRN (09:50)
[2024-05-09] MEDS ORDERED: Calcium Carb (TUMS) 500 mg CHEW TAB PO PRN (09:50)
[2024-05-09] MEDS ORDERED: Magnesium Hydroxide LIQ 30 ML UDC PO PRN (09:50)
[2024-05-09] MEDS: Acetaminophen IV 1 GM/100ML 1,000 MG/100 ML BAG IV ONE (12:04)
[2024-05-09] MEDS ORDERED: HYDROcodone/ACETAMIN 5/325 mg TAB PO PRN (12:11)
[2024-05-09] MEDS: HYDROcodone/ACETAMIN 5/325 mg TAB PO PRN (16:26)
[2024-05-09] MEDS: ceFAZolin 2 GM PREMIX 2 GM/50 ML BAG IV SCH (16:49)
[2024-05-09] MEDS: Magnesium Hydroxide LIQ 30 ML UDC PO SCH (21:54)
[2024-05-10 06:29] LABS: Hematocrit 31.8 % (35-45); Hemoglobin 10.8 g/dL (11.5-14.3); Mean Platelet Volume 7.9 fL (7.5-11.2); Platelet Count 207 10^3/uL (150-450)
[2024-05-10 06:48] LABS: Calcium 8.9 mg/dL (8.6-10.3); Creatinine, Serum 0.78 mg/dL (0.51-0.95); Potassium 4.6 mmol/L (3.5-5.0); eGFR CKD-EPI 79.2 (>60)
[2024-05-10] MEDS: Vitamin THERAPEUTIC TAB PO SCH (07:41)
[2024-05-10 09:46] VITALS: BP 128/59
== END 2024-05-10 12:50 | disposition home or self-care (01) ==
LOC: OR 05:37 → SSU 05:37
PROVIDERS: ADMIT Orthopaedic Surgery Adult Reconstructive Orthopaedic Surgery; ATTEND Orthopaedic Surgery Adult Reconstructive Orthopaedic Surgery